=== PATIENT | male | born 1990 | race Caucasian/White ===

== ENCOUNTER 2016-09-09 14:05 | Emergency (ER) | payer SELFPAY ==
[~2016-09-09] VITALS: Ht 177.8 cm; Wt 80.2 kg
[~2016-09-09 14:05] MED LIST: FLUO-1 PO; PANT40TA3 PO; ZOFR4TAB PO
[2016-09-09 14:28] VITALS: BP 118/69; PULSE 74; RESP 20; O2SAT 99
[2016-09-09] MEDS ORDERED: CLINDAMYCIN 150 MG CAP PO ONE (15:45)
[2016-09-09] MEDS ORDERED: IBUPROFEN 400 MG TAB PO ONE (15:45)
[2016-09-09] MEDS ORDERED: SULFAMETHOXAZOLE-TRIMETHOPRIM DS 800-160 MG TAB PO ONE (15:45)
[2016-09-09] MEDS ORDERED: BACT800T5 PO (15:47)
[2016-09-09] MEDS ORDERED: NORC5TAB PO (15:47)
[2016-09-09] MEDS ORDERED: CLIN150 PO (15:47)
--- NOTE | 2016-09-09 15:48 | PD ---
HPI Chief Complaint: Skin Problem Time Seen by Provider: 15:17 Travel History International Travel<30 days: No Contact w/Intl Traveler<30days: No Traveled to known affect area: No History of Present Illness HPI The patient is a 26-year-old male who presents to the emergency department for a skin infection right forearm. Patient is a 2 day history of increasing redness and discomfort over the volar aspect of the right forearm. The patient thinks he may have a staph infection as he has a history of staph infections in the past. The patient denies any trauma to the affected area. He does note mild swelling, warmth to the affected area, and redness. However, he denies any drainage from the wound. The patient denies any associated fever , chills, or sweats. Symptoms are mild to moderate without any alleviating or exacerbating factors. PFSH Past Medical History Blood Disorders: No Anxiety: Yes Depression: Yes Cancer: No Cardiovascular Problems: Yes Diabetes: No Endocrine: No Gastrointestinal Disorders: Yes (ulcers) GERD: Yes Genitourinary: No Hypertension: Yes Immune Disorder: No Musculoskeletal: No Neurologic: No Psychiatric: No Reproductive: No Respiratory: No Tetanus Vaccination: < 5 Years Influenza Vaccination: No Past Surgical History Other Surgery: Yes (RIGHT NECK LYMPH NODE-REMOVAL R/T INFECTION) Social History Alcohol Use: Yes (occ) Tobacco Use: Yes (1ppd) Substance Use: No Allergies-Medications (Allergen,Severity, Reaction): Coded Allergies: No Known Allergies (Unverified , 09/09/16) Reported Meds & Prescriptions Reported Meds & Active Scripts Active Zofran (Ondansetron HCl) 4 Mg Tab 4 Mg PO Q6HR PRN Pantoprazole (Pantoprazole Sodium) 40 Mg Tab 40 Mg PO DAILY Prozac (Fluoxetine HCl) 10 Mg Cap 10 Mg PO DAILY Review of Systems Except as stated in HPI: all other systems reviewed are Neg General / Constitutional: No: Fever, Chills Musculoskeletal: Positive: Edema, Pain Skin: No Other (no drainage) Neurologic: No: Paresthesia, Sensory Disturbance Physical Exam Narrative GENERAL: Awake, alert, nontoxic-appearing 26-year-old male who appears his stated age and is in no acute respiratory distress. SKIN: Warm and dry. HEAD: Atraumatic. Normocephalic. EYES: No injection or drainage. ENT: No nasal bleeding or discharge. Mucous membranes pink and moist. NECK: Trachea midline. No JVD. MUSCULOSKELETAL: The right forearm has mild edema over the volar aspect, proximal one third, with mild induration, but no obvious fluctuance. No tenderness will drainage. Positive right radial pulse. Patient is able fully flex and extend the right elbow and right wrist. NEUROLOGICAL: Awake and alert. No obvious cranial nerve deficits. Motor grossly within normal limits. Normal speech. PSYCHIATRIC: Appropriate mood and affect; insight and judgment normal. Data Data Last Documented VS Vital Signs Date Time Temp Pulse Resp B/P Pulse Ox O2 Delivery O2 Flow Rate FiO2 09/09/16 14:28 74 20 118/69 99 Orders Wound Culture And Gram Stain (09/09/16 15:41) Clindamycin (Cleocin) (09/09/16 15:45) Sulfamet-Trimeth Ds 800-160 Mg (Bactrim (09/09/16 15:45) Ibuprofen (Motrin) (09/09/16 15:45) MDM Medical Decision Making Medical Screen Exam Complete: Yes Emergency Medical Condition: Yes Medical Record Reviewed: Yes Differential Diagnosis Differential diagnosis includes abscess, cellulitis, infected wound, septic arthritis, allergic reaction, insect bite. Narrative Course I do discussion with the patient regarding possible needle aspiration to evaluate if there is an abscess. The patient was agreeable and understands the risk and benefits. There is currently with alcohol and an 18-gauge needle was placed into the area of induration. There was minimal blood return, no purulent drainage. Culture was obtained. No further incision and drainage was attempted as the abscess does not appear to have solidified. The patient was administered clindamycin, Bactrim, and ibuprofen. The patient will be discharged home on pain medication and antibiotics. He is advised to elevate, warm compresses, and reevaluated in 48 hours if symptoms do not improve or worsen. Procedures Procedure Narrative The right forearm was cleaned with alcohol. An 18-gauge inch needle was placed into the area of induration with small amount of blood returned. Culture was obtained. The patient then had a dry dressing applied. The patient tolerated the procedure without difficulty and there was no obvious complications. Diagnosis Primary Impression: Cellulitis of right arm Patient Instructions: General Instructions Additional Instructions: Medications as directed. Follow-up with your primary physician. Elevate and apply heat as needed. Return in 48 hours for reevaluation if symptoms worsen or do not improve. Med/Other Pt SpecificInfo: Prescription(s) given Scripts Hydrocodone-Acetaminophen (Nash)5-325 mg Tab1 Tab PO Q6H PRN (PAIN) #15 TAB Ref 0 Prov:Jude Coburn MD 09/09/16 Clindamycin (Cleocin)150 Mg [id number] Mg PO Q6H 7 Days Ref 0 Prov:Jude Coburn MD 09/09/16 Sulfamethoxazole-Trimethoprim (Bactrim DS)800-160 Mg Tab1 Tab PO BID #14 TAB Ref 0 Prov:Jude Coburn MD 09/09/16 Disposition: 01 DISCHARGE HOME Condition: Stable Jude Coburn MD Sep 09, 2016 15:48
== END 2016-09-09 16:14 | disposition home or self-care (01) ==
LOC: PHED 14:05
DX: L03.113 Cellulitis of right upper limb (principal); B95.61 Methicillin susceptible Staphylococcus aureus infection as the cause of diseases classified elsewhere
CPT/HCPCS: 10160; 86403; 87070; 87186; 87205

== ENCOUNTER 2016-09-12 09:25 | Inpatient (IN) | payer SELFPAY ==
[~2016-09-12] VITALS: Ht 175.3 cm; Wt 80.0 kg
[~2016-09-12 09:25] MED LIST changes: +BACT800T5 PO; +CLIN150 PO; +NORC5TAB PO
[2016-09-12 09:29] VITALS: BP 136/66; PULSE 83; RESP 15; TEMP 98.1; O2SAT 99
[2016-09-12] MEDS ORDERED: PIPERACIL-TAZO 4.5 GM PREMIX 100 ML IV STA (10:56)
[2016-09-12] MEDS ORDERED: VANCOMYCIN INJ 1,000 MG in SODIUM CHLOR 0.9% 250 ML INJ 250 ML IV STA (10:56)
[2016-09-12] MEDS ORDERED: SODIUM CHLOR 0.9% 1000 ML INJ 1,000 ML IV ONE (11:00)
[2016-09-12] MEDS ORDERED: SODIUM CHLORIDE 0.9% FLUSH 5 ML FLUSH IVF PRN (11:00)
--- NOTE | 2016-09-12 11:02 | PD ---
HPI Chief Complaint: Skin Problem Time Seen by Provider: 10:45 Travel History International Travel<30 days: No Contact w/Intl Traveler<30days: No Traveled to known affect area: No History of Present Illness HPI 26-year-old male coming in with ongoing cellulitis and swelling to the right forearm. Patient was seen on September [address] Coburn, who used a needle to obtain a culture of a small abscess to the right lateral volar forearm. Wound culture came back today showing resistance to erythromycin and clindamycin. Patient was discharged home on oral Bactrim and clindamycin. Patient returns now stating increased swelling, erythema, warmth, and decreased range of motion secondary to swelling. He is not complaining of significant pain. There is no streaking in the upper arm. He denies fevers. He has no known drug allergies. Patient last ate at 0800 hrs. PFSH Past Medical History Blood Disorders: No Anxiety: Yes Depression: Yes Cancer: No Cardiovascular Problems: Yes Diabetes: No Diminished Hearing: No Endocrine: No Gastrointestinal Disorders: Yes (ulcers) GERD: Yes Genitourinary: No Hypertension: Yes Immune Disorder: No Musculoskeletal: No Neurologic: No Psychiatric: No Reproductive: No Respiratory: No Tetanus Vaccination: < 5 Years Influenza Vaccination: No Past Surgical History Other Surgery: Yes (RIGHT NECK LYMPH NODE-REMOVAL R/T INFECTION) Social History Alcohol Use: Yes (occassionally) Tobacco Use: Yes (1ppd) Substance Use: No Allergies-Medications (Allergen,Severity, Reaction): Coded Allergies: No Known Allergies (Unverified , 09/12/16) Reported Meds & Prescriptions Reported Meds & Active Scripts Active [place] (Hydrocodone-Acetaminophen) 5-325 mg Tab 1 Tab PO Q6H PRN Cleocin (Clindamycin HCl) 150 Mg Cap 150 Mg PO Q6H 7 Days Bactrim DS (Sulfamethoxazole-Trimethoprim) 800-160 Mg Tab 1 Tab PO BID Zofran (Ondansetron HCl) 4 Mg Tab 4 Mg PO Q6HR PRN Pantoprazole (Pantoprazole Sodium) 40 Mg Tab 40 Mg PO DAILY Prozac (Fluoxetine HCl) 10 Mg Cap 10 Mg PO DAILY Review of Systems Except as stated in HPI: all other systems reviewed are Neg General / Constitutional: Positive: Chills, No: Fever Eyes: No: Visual changes HENT: No: Headaches Cardiovascular: No: Chest Pain or Discomfort Respiratory: No: Shortness of Breath Gastrointestinal: No: Abdominal Pain Genitourinary: No: Dysuria Musculoskeletal: Positive: Limited ROM, No: Pain Skin: Positive Other (see history present illness.), No Rash Neurologic: No: Weakness Psychiatric: No: Depression Endocrine: No: Polydipsia Hematologic/Lymphatic: No: Easy Bruising Physical Exam Narrative GENERAL: Patient appears in no acute distress. SKIN: Warm and dry. Patient's right forearm is erythematous, warm, and indurated from the elbow down through the wrist and dorsal hand. Patient has normal sensation and circulation in the distal right upper extremity. Patient does however have somewhat limited supination and pronation of the right forearm. There is no lymphangitis proximally to the elbow. There is no obvious pointing abscess. HEAD: Atraumatic. Normocephalic. EYES: Pupils equal and round. No scleral icterus. No injection or drainage. ENT: No nasal bleeding or discharge. Mucous membranes pink and moist. Pharynx is normal. NECK: Trachea midline. No JVD. Supple nontender without significant lymphadenopathy. CARDIOVASCULAR: Regular rate and rhythm. RESPIRATORY: No accessory muscle use. Clear to auscultation. Breath sounds equal bilaterally. . MUSCULOSKELETAL: Extremities without clubbing, cyanosis, or edema. No obvious deformities. SEE SKIN NEUROLOGICAL: Awake and alert. No obvious cranial nerve deficits. Motor grossly within normal limits. Five out of 5 muscle strength in the arms and legs. Normal speech. PSYCHIATRIC: Appropriate mood and affect; insight and judgment normal. Data Data Last Documented VS Vital Signs Date Time Temp Pulse Resp B/P Pulse Ox O2 Delivery O2 Flow Rate FiO2 09/12/16 11:05 98 Room Air 09/12/16 11:05 17 09/12/16 09:29 98.1 83 136/66 Orders Complete Blood Count With Diff (09/12/16 10:56) Blood Culture (09/12/16 10:56) Sodium Chloride 0.9% Flush (Ns Flush) (09/12/16 11:00) Piperacil-Tazo 4.5 Gm Premix (Zosyn 4.5 (09/12/16 10:56) Vancomycin Inj (Vancomycin Inj) (09/12/16 10:56) Comprehensive Metabolic Panel (09/12/16 10:56) Lactic Acid Sepsis Protocol (09/12/16 10:56) Chest, Single Ap (09/12/16 10:56) Ecg Monitoring (09/12/16 10:56) Iv Access Insert/Monitor (09/12/16 10:56) Oximetry (09/12/16 10:56) Oxygen Administration (09/12/16 10:56) Sodium Chlor 0.9% 1000 Ml Inj (Ns 1000 M (09/12/16 11:00) NPO (09/12/16 10:56) Ct Forearm W Iv Contrast (09/12/16 ) Iohexol 350 Inj (Omnipaque 350 Inj) (09/12/16 11:34) Potassium Chloride (Kcl) (09/12/16 12:15) Potassium Chlor 20 Meq Premix (Kcl 20 Me (09/12/16 12:15) Azithromycin Inj (Zithromax Inj) (09/12/16 13:00) Albuterol-Ipratropium Neb (Duoneb Neb) (09/12/16 13:00) Guaifen-Cod 200-20 Mg/10ml Liq (Robituss (09/12/16 13:00) Sputum Culture And Gram Stain (09/12/16 12:51) Legionella Urinary Antigen (09/12/16 12:51) Pneumococcal Urinary Antigen (09/12/16 12:51) Resp Oxygen Jaden C Titrat 1-4 L (09/12/16 ) Resp Incentive Spirometry (09/12/16 ) Admit Order (Ed Use Only) (09/12/16 12:57) Labs Laboratory Tests Test 09/12/16 09/12/16 11:06 11:29 White Blood Count 8.2 TH/MM3 Red Blood Count 4.54 MIL/MM3 Hemoglobin 13.7 GM/DL Hematocrit 39.7 % Mean Corpuscular Volume 87.4 FL Mean Corpuscular Hemoglobin 30.2 PG Mean Corpuscular Hemoglobin 34.6 % Concent Red Cell Distribution Width 12.9 % Platelet Count 137 TH/MM3 Mean Platelet Volume 10.9 FL Neutrophils (%) (Auto) 73.0 % Lymphocytes (%) (Auto) 16.4 % Monocytes (%) (Auto) 8.2 % Eosinophils (%) (Auto) 1.8 % Basophils (%) (Auto) 0.6 % Neutrophils # (Auto) 6.0 TH/MM3 Lymphocytes # (Auto) 1.3 TH/MM3 Monocytes # (Auto) 0.7 TH/MM3 Eosinophils # (Auto) 0.1 TH/MM3 Basophils # (Auto) 0.0 TH/MM3 CBC Comment DIFF FINAL Differential Comment Sodium Level 137 MEQ/L Potassium Level 2.8 MEQ/L Chloride Level 100 MEQ/L Carbon Dioxide Level 28.0 MEQ/L Anion Gap 9 MEQ/L Blood Urea Nitrogen 5 MG/DL Creatinine 0.83 MG/DL Estimat Glomerular Filtration 110 ML/MIN Rate Random Glucose 123 MG/DL Calcium Level 8.6 MG/DL Magnesium Level 2.0 MG/DL Total Bilirubin 0.7 MG/DL Aspartate Amino Transf 14 U/L (AST/SGOT) Alanine Aminotransferase 38 U/L (ALT/SGPT) Alkaline Phosphatase 84 U/L Total Protein 6.5 GM/DL Albumin 3.1 GM/DL Lactic Acid Level 2.6 mmol/L [facility] Medical Decision Making Medical Screen Exam Complete: Yes Emergency Medical Condition: Yes Differential Diagnosis Worsening cellulitis the right forearm. Deep abscess of the right forearm suspected. Failure to outpatient therapy. Possible need for surgery. Narrative Course Patient is felt to be medically stable at time of exam. IV access is obtained and labs ordered including CBC, CMP, lactic acid, blood cultures 2. Patient is started on Zosyn for 4.25 mg IV as well as vancomycin 1000 mg IV. Chest x-ray is ordered. Patient is made nothing by mouth. CT with IV contrast of the right forearm is ordered to evaluate extent of abscess. Patient is given 1000 mL's normal saline IV. CT shows phlebitis with localized induration, as well as 10 cm long deep abscess to the right lateral forearm per radiologist. Call is placed to Dr. Cooper, and patient is discussed. He recommends calling [facility] surgery on-call for OR I&D. Call was placed to Dr. Rojas, and we attempted to reach his office from 12:15 PM, 1306 p.m., 1407 p.m., and I'm still awaiting to speak to him. 1500 [address] finally spoke with [address] Rojas, and he stated he would not feel comfortable operating on this patient as the abscess is beyond the elbow. Call was placed to Dr. Cooper who states he will perform the I&D on the patient. Diagnosis Primary Impression: Abscess of forearm, right Additional Impression: Cellulitis of right arm Admitting Information Admitting Physician Requests: Admit Condition: Stable Gilberto Franklin Sep 12, 2016 11:02
[2016-09-12 11:05] VITALS: RESP 17; O2SAT 98
[2016-09-12] MEDS ORDERED: IOHEXOL 350 MG/ML 10 ML VIAL (for RAD DIAG) IV ONE (11:34)
[2016-09-12 11:38] LABS: BASOPHIL % 0.6 % (0.0-2.0); EOSINOPHIL # 0.1 TH/MM3 (0-0.4); EOSINOPHIL % 1.8 % (0.0-4.0); HEMATOCRIT 39.7 % (39.0-51.0); HEMO FLAGS DIFF FINAL; LYMPH % 16.4 % (9.0-44.0); LYMPHOCYTE # 1.3 TH/MM3 (1.0-4.8); MEAN CELL VOLUME 87.4 FL (80.0-100.0); MEAN CORPUSCULAR HEMOGLOBIN 30.2 PG (27.0-34.0); MEAN CORPUSCULAR HGB CONC 34.6 % (32.0-36.0); MONO % 8.2 % (0.0-8.0); PLATELET COUNT 137 TH/MM3 (150-450); RED BLOOD COUNT 4.54 MIL/MM3 (4.50-5.90); RED CELL DISTRIBUTION WIDTH 12.9 % (11.6-17.2); WHITE BLOOD COUNT 8.2 TH/MM3 (4.0-11.0)
--- NOTE | 2016-09-12 11:54 | RADRPT ---
EXAM DATE/TIME: 09/12/2016 11:17 [facility] COMPARISON: No previous studies available for comparison. INDICATIONS : Evaluate for abscess on right forearm, worsening on antibiotics. Redness and swelling right forearm. IV CONTRAST: 75 cc Omnipaque 350 (iohexol) IV RADIATION DOSE: 9.39 CTDIvol (mGy) MEDICAL HISTORY : Cardiovascular disease. Hypertension. SURGICAL HISTORY : None. ENCOUNTER: Initial ACUITY: 3 days PAIN SCALE: 0/10 LOCATION: Right forearm TECHNIQUE: Volumetric scanning of the forearm was performed. Using automated exposure control and adjustment of the mA and/or kV according to patient size, radiation dose was kept as low as reasonably achievable to obtain optimal diagnostic quality images. FINDINGS: There is fairly extensive cellulitis of the forearm predominantly along the posterior medial aspect o f the forearm. There is skin thickening and subcutaneous edema. There is a superficial thrombophlebit is involving the basilic vein with 2 areas of intraluminal thrombus noted measuring up to about 2.3 c m in length distally and 1 cm in length proximally. There is a subcutaneous abscess on the surface of the forearm musculature along the ulnar aspect of the forearm which extends over a total length of a bout 10 cm and measures about 1.6 cm in transverse diameter and about up to 1 cm in thickness. No bon y destructive change identified to suggest osteomyelitis. CONCLUSION: 1. Superficial basilic vein thrombophlebitis associated with cellulitis of the forearm. There is also an elongated deep subcutaneous abscess extending over a length of about 10 cm and measuring up to ab out 1.6 x 1 cm in axial dimension. No evidence for osteomyelitis. Douglas Appiah MD on September 12, 2016 at 11:45 Board Certified Radiologist. This report was verified electronically.
[2016-09-12 11:58] LABS: ALKALINE PHOSPHATASE 84 U/L (45-117); ALT (GPT) 38 U/L (12-78); ANION GAP 9 MEQ/L (5-15); AST (GOT) 14 U/L (15-37); BLOOD UREA NITROGEN 5 MG/DL (7-18); CHLORIDE 100 MEQ/L (98-107); GLOMERULAR FILTRATION RATE 110 ML/MIN (>89); SODIUM (NA) 137 MEQ/L (136-145); TOTAL BILIRUBIN ADULT 0.7 MG/DL (0.2-1.0)
[2016-09-12] MEDS ORDERED: PROPOFOL 200 MG/20 ML AMP IV ONE (12:00)
[2016-09-12] MEDS ORDERED: ONDANSETRON HCL 4 MG/2 ML VIAL IV PUSH ONE (12:00)
--- NOTE | 2016-09-12 12:03 | RADRPT ---
EXAM DATE/TIME: 09/12/2016 11:00 [facility] COMPARISON: CT ABDOMEN & PELVIS W CONTRAST, September 03, 2016, 21:54. CHEST SINGLE AP, September 02, 2016, 18:09. INDICATIONS : Fever, right arm swelling. MEDICAL HISTORY : None. SURGICAL HISTORY : None. ENCOUNTER: Initial ACUITY: 4 - 6 days PAIN SCORE: 0/10 LOCATION: Bilateral chest FINDINGS: There is vague infiltrate in the medial right lung base. The left lung is grossly clear. Cardiomedias tinal contours are satisfactory. The osseous structures are intact CONCLUSION: Mild right middle lobe infiltrate Osmani Brumfield MD on September 12, 2016 at 12:00 Board Certified Radiologist. This report was verified electronically.
[2016-09-12 12:04] LABS: POTASSIUM 2.8 MEQ/L (3.5-5.1)
[2016-09-12] MEDS ORDERED: POTASSIUM CHLORIDE 20 MEQ CONTROLLED RELEASE TAB PO ONE (12:15)
[2016-09-12] MEDS ORDERED: POTASSIUM CHLOR 20 MEQ PREMIX 100 ML IV ONE (12:15)
[2016-09-12] MEDS ORDERED: ACETAMINOPHEN 325 MG TAB PO PRN ×2 (13:00)
[2016-09-12] MEDS ORDERED: ONDANSETRON HCL 4 MG/2 ML VIAL IVP PRN (13:00)
[2016-09-12] MEDS ORDERED: ACETAMINOPHEN/HYDROcodone 325 MG/7.5 MG TAB PO PRN (13:00)
[2016-09-12] MEDS ORDERED: MAGNESIUM HYDROXIDE SUSP 30 ML CUP PO PRN (13:00)
[2016-09-12] MEDS ORDERED: SODIUM CHLORIDE 0.9% FLUSH 5 ML FLUSH FLUSH PRN (13:00)
[2016-09-12] MEDS ORDERED: NALOXONE HCL 0.4 MG/ML AMP IV PRN (13:00)
[2016-09-12] MEDS ORDERED: guaiFENesin/CODEINE SYRUP 200 MG/20 MG/10 ML CUP PO PRN (13:00)
[2016-09-12] MEDS ORDERED: RESP: ALBUTEROL 2.5 MG/IPRATROPIUM 0.5 MG NEB (PRN) INH (13:00)
[2016-09-12] MEDS ORDERED: BISACODYL 10 MG SUPP PR PRN (13:00)
[2016-09-12] MEDS ORDERED: AZITHROMYCIN INJ 500 MG in SODIUM CHLOR 0.9% 250 ML INJ 250 ML IV SCH (13:00)
[2016-09-12] MEDS ORDERED: MORPHINE SULFATE 4 MG/ML INJ IV PRN (13:00)
[2016-09-12] MEDS ORDERED: SENNOSIDES 8.6 MG TAB PO PRN (13:00)
[2016-09-12] MEDS ORDERED: ACETAMINOPHEN/HYDROcodone 325 MG/5 MG TAB PO PRN (13:00)
[2016-09-12 13:29] LABS: LACTIC ACID GHOST NOT REPORTABLE
[2016-09-12] MEDS ORDERED: LEVOFLOXACIN 750 MG PREMIX INJ 150 ML IV SCH (14:00)
[2016-09-12] MEDS: DOCUSATE SODIUM 100 MG CAP PO SCH (14:04)
[2016-09-12] MEDS: LACTATED RINGER'S 1000 ML INJ 1,000 ML IV SCH ×2 (15:02→20:34)
[2016-09-12 15:03] VITALS: BP 118/61; PULSE 84; RESP 16; O2SAT 98
--- NOTE | 2016-09-12 15:37 | HHI.HP ---
[facility] Service [facility] Primary Care Physician No Primary Care Physician Admission Diagnosis R Forearm Abscess/Pneumonia/Hypokalemia Diagnoses: Chief Complaint: right forearm abscess Travel History International Travel<30 Days: No Contact w/Intl Traveler <30 Da: No Traveled to Known Affected Are: No History of Present Illness 26-year-old male with history of GERD, marijuana use, anxiety/depression, presents with a five-day history of right forearm swelling/warmth. Patient reports this past Friday09/07/16 he started to notice just a small bump at the volar aspect of his right forearm. The swelling worsened and therefore he presented to the ER on 09/09/16, needle aspiration of the abscess was done, and the patient was sent home on oral Bactrim and clindamycin. The wound culture was resulted with MSSA resistant to erythromycin/clindamycin. Patient reports compliance with his antibiotics, however the swelling, erythema, warmth continues to worsen. He denies fevers or chills. He has decreased range of motion of the right elbow secondary to swelling. The patient adamantly denies any IVDU. 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 He denies any other medical complaints at this time. Review of Systems Constitutional: DENIES: Fever, Chills, Dizziness Endocrine: DENIES: Polydipsia, Polyuria, Polyphagia Eyes: DENIES: Blurred vision, Vision loss, Double Vision Ears, nose, mouth, throat: DENIES: Throat pain, Ear Pain, Odynophagia Respiratory: DENIES: Cough, Shortness of breath Cardiovascular: DENIES: Chest pain, Palpitations, Syncope, Orthopnea Gastrointestinal: DENIES: Abdominal pain, Constipation, Diarrhea, Nausea, Vomiting Genitourinary: DENIES: Urinary frequency, Urgency, Dysuria Musculoskeletal: DENIES: Back pain, Neck pain Integumentary: DENIES: Pruritus, Rash Hematologic/lymphatic: DENIES: Bruising, Lymphadenopathy Immunologic/allergic: DENIES: Eczema, Urticaria Neurologic: DENIES: Abnormal gait, Headache, Localized weakness Past Family Social History Past Medical History GERD anxiety/depression recent hospitalization 09/02/16-09/05/16 for abdominal pain/N/V, possible marijuana induced hyperemesis vs somatization/anxiety Past Surgical History Right neck lymph node removed secondary to infection Complicated laceration repair to lower extremity EGD 09/03/16 Reported Medications Branford (Hydrocodone-Acetaminophen) 5-325 mg Tab 1 Tab PO Q6H PRN Cleocin (Clindamycin HCl) 150 Mg Cap 150 Mg PO Q6H 7 Days Bactrim DS (Sulfamethoxazole-Trimethoprim) 800-160 Mg Tab 1 Tab PO BID Zofran (Ondansetron HCl) 4 Mg Tab 4 Mg PO Q6HR PRN Pantoprazole (Pantoprazole Sodium) 40 Mg Tab 40 Mg PO DAILY Prozac (Fluoxetine HCl) 10 Mg Cap 10 Mg PO DAILY Allergies: Coded Allergies: No Known Allergies (Unverified , 09/12/16) Active Ordered Medications Current Medications Medications (Trade) Dose Ordered Sig/Mike Route Start Time Stop Time Status Last Admin Guaifenesin/ Codeine Phosphate 10 ml 10 ml Q4H PRN PO 09/12/16 13:00 (Levaquin 750 Mg Premix Inj) 150 ml @ 100 mls/hr Q48H IV 09/12/16 14:00 09/12/16 14:05 (NS Flush) 2 ml UNSCH PRN FLUSH 09/12/16 13:00 (NS Flush) 2 ml BID FLUSH 09/12/16 21:00 (Tylenol) 650 mg Q4H PRN PO 09/12/16 13:00 (Zofran Inj) 4 mg Q6H PRN IVP 09/12/16 13:00 (Dulcolax Supp) 10 mg DAILY PRN [place] 09/12/16 13:00 (Colace) 100 mg Q12H PO 09/12/16 13:00 09/12/16 14:04 (Milk Of Magnesia Liq) 30 ml Q12H PRN PO 09/12/16 13:00 (Senokot) 17.2 mg Q12H PRN PO 09/12/16 13:00 (Tylenol) 650 mg Q6H PRN PO 09/12/16 13:00 (Branford 5-325 Mg) 1 tab Q4H PRN PO 09/12/16 13:00 (Branford 7.5-325 Mg) 1 tab Q4H PRN PO 09/12/16 13:00 (Morphine Inj) 1 mg Q3H PRN IV 09/12/16 13:00 Naloxone HCl 0.4 mg 0.4 mg UNSCH PRN IV 09/12/16 13:00 (Lr 1000 ml Inj) 1,000 ml @ 125 mls/hr Q8H IV 09/12/16 15:00 09/12/16 15:02 Family History Mother has thyroid disease Brother with heart disease Social History Tobacco use- 1 PPD Occasional alcohol use Daily marijuana use Denies any IVDU Physical Exam Vital Signs Vital Signs Date Time Temp Pulse Resp B/P Pulse Ox O2 Delivery O2 Flow Rate FiO2 09/12/16 11:05 98 Room Air 09/12/16 11:05 17 98 Room Air 09/12/16 09:35 17 09/12/16 09:29 98.1 83 15 136/66 99 Physical Exam GENERAL: Well-nourished, well-developed young male patient in [facility]. SKIN: Warm and dry. No rash. HEAD: Normocephalic. Atraumatic. EYES: Pupils equal and round. No scleral icterus. No injection or drainage. ENT: No nasal bleeding or discharge. Mucous membranes pink and moist. NECK: Supple. Trachea midline. CARDIOVASCULAR: Regular rate and rhythm. S1, S2 noted. No murmur appreciated. RESPIRATORY: No accessory muscle use. Clear to auscultation. Breath sounds equal bilaterally. GASTROINTESTINAL: Abdomen soft, non-tender, nondistended. Normoactive bowel sounds x4. MUSCULOSKELETAL: No obvious deformities. Lower extremities without clubbing, cyanosis, or edema. Right volar forearm with diffuse erythema/warmth/edema/ induration, tender, decreased ROM of right elbow secondary to swelling but no redness or tenderness. Left forearm exam unremarkable. NEUROLOGICAL: Awake and alert. No obvious cranial nerve deficits. Motor grossly within normal limits. 5/5 muscle strength in bilateral upper and lower extremities. Normal speech. PSYCHIATRIC: Appropriate mood and affect; insight and judgment normal. Laboratory Laboratory Tests Test 09/12/16 09/12/16 11:06 11:29 White Blood Count 8.2 Red Blood Count 4.54 Hemoglobin 13.7 Hematocrit 39.7 Mean Corpuscular Volume 87.4 Mean Corpuscular Hemoglobin 30.2 Mean Corpuscular Hemoglobin 34.6 Concent Red Cell Distribution Width 12.9 Platelet Count 137 Mean Platelet Volume 10.9 Neutrophils (%) (Auto) 73.0 Lymphocytes (%) (Auto) 16.4 Monocytes (%) (Auto) 8.2 Eosinophils (%) (Auto) 1.8 Basophils (%) (Auto) 0.6 Neutrophils # (Auto) 6.0 Lymphocytes # (Auto) 1.3 Monocytes # (Auto) 0.7 Eosinophils # (Auto) 0.1 Basophils # (Auto) 0.0 CBC Comment DIFF FINAL Differential Comment Sodium Level 137 Potassium Level 2.8 Chloride Level 100 Carbon Dioxide Level 28.0 Anion Gap 9 Blood Urea Nitrogen 5 Creatinine 0.83 Estimat Glomerular Filtration 110 Rate Random Glucose 123 Calcium Level 8.6 Magnesium Level 2.0 Total Bilirubin 0.7 Aspartate Amino Transf 14 (AST/SGOT) Alanine Aminotransferase 38 (ALT/SGPT) Alkaline Phosphatase 84 Total Protein 6.5 Albumin 3.1 Lactic Acid Level 2.6 Date/Time Procedure Status Source Growth 09/12/16 11:06 Aerobic Blood Culture Received Blood Peripheral Pending 09/12/16 11:06 Anaerobic Blood Culture Received Blood Peripheral Pending Result Diagram: 09/12/16 1106 09/12/16 1106 Imaging Last Impressions Chest X-Ray 09/12/16 1056 Signed Impressions: Service Date/Time: September 11:00 - CONCLUSION: Mild right middle lobe infiltrate Osmani Brumfield MD Upper Extremity CT 09/12/16 0000 Signed Impressions: Service Date/Time: September 11:17 - CONCLUSION: 1. Superficial basilic vein thrombophlebitis associated with cellulitis of the forearm. There is also an elongated deep subcutaneous abscess extending over a length of about 10 cm and measuring up to about 1.6 x 1 cm in axial dimension. No evidence for osteomyelitis. Douglas Appiah MD Assessment and Plan Problem List: (1) Abscess of forearm, right ICD Code: L02.413 Status: Acute Assessment and Plan 26-year-old male with history of GERD, marijuana use, anxiety/depression, presents with a five-day history of right forearm swelling/warmth. Right Forearm Abscess, Failed Outpatient: Initially seen in ER on 09/09/16, needle aspiration done and patient was sent home on po Bactrim/clindamycin. Wound culture resulted with MSSA resistant to erythromycin/clindamycin. RUE CT done which showed superficial basiclic vein thrombophlebitis associated with cellulitis of forearm; also elongated deep subcutaneous abscess extending over a length of 10cm, measuring up to 1.6x1cm. Afebrile, no leukocytosis. Blood cultures collected. S/p IV Vanco and Zosyn in the ER. Continue on IV Levaquin. Consult hand surgery, Dr. Cooper plan for I&D in OR today. Keep NPO. Pain control with Branford prn and IV Morphine prn. Abnormal CXR, possible Pneumonia: chest xray showing mild RML infiltrate. Patient denies cough/sob/fever/chills. On IV Levaquin as above. Hypokalemia: K 2.8. Given IV KCl. Repeat BMP in the am. GERD: chronic, continue patient's Protonix. Anxiety/Depression: chronic, continue patient's Prozac. DVT Prophylaxis: teds/SCDs Written by Jessika Thornton, acting as scribe for Dr. Montesinos on 09/12/16 at 14:40. The documentation accurately reflects the work performed [id number] by me on at 1440 Code Status Full Code Discussed Condition With Patient, RESIDENT SERVICE COORDINATOR, ER PA Physician Certification 2 Midnight Certification Type: Admission for Inpatient Services Order for Inpatient Services The services are ordered in accordance with Medicare regulations or non- Medicare payer requirements, as applicable. In the case of services not specified as inpatient-only, they are appropriately provided as inpatient services in accordance with the 2-midnight benchmark. Estimated LOS (days): 2 days is the estimated time the patient will need to remain in the hospital, assuming treatment plan goals are met and no additional complications. Post-Hospital Plan: Home Jessika Thornton PA-C Sep 12, 2016 15:37 Nathan Montesinos MD Sep 12, 2016 16:53
[2016-09-12] MEDS ORDERED: LIDOCAINE HCL 2% 50 ML VIAL ONE (16:17)
[2016-09-12] MEDS ORDERED: BUPIVACAINE HCL PF 0.5% 30 ML VIAL ONE (16:17)
[2016-09-12] MEDS ORDERED: FAMOTIDINE 20 MG/2 ML VIAL ONE (16:32)
[2016-09-12] MEDS ORDERED: MIDAZOLAM HCL 2 MG/2 ML VIAL ONE (16:32)
[2016-09-12] MEDS ORDERED: DEXAMETHASONE SOD PHOS 4 MG/ML VIAL ONE (16:32)
[2016-09-12] MEDS ORDERED: NEOMYCIN/POLYMYXIN 1 ML G.U. IRRIGANT IR ONE (17:08)
[2016-09-12] MEDS ORDERED: MORPHINE SULFATE 4 MG/ML INJ ONE (17:40)
[2016-09-12] MEDS ORDERED: *morphine SULFATE 8 MG/ML PERIprocedure ONLY ONE ×3 (17:40→19:08)
[2016-09-12] MEDS ORDERED: fentaNYL CITRATE 250 MCG/5 ML AMP ONE (17:40)
--- NOTE | 2016-09-12 18:18 | MB ---
cc: PASTOR SOMMERS III, M.D. DATE OF CONSULTATION: 09/12/2016. REASON FOR CONSULTATION: The patient is a right hand dominant 26-year-old male who came into the emergency room. The other physicians were either unable or unwilling to take the consult so I agreed to. HISTORY OF PRESENT ILLNESS: The patient was in the hospital about a week ago for GI issues where he had endoscopy performed and he developed a small abscess on the right forearm. It was aspirated by an ER doctor on September 09 and grew out Staph aureus and he came back today with worsening redness, swelling and pain. PAST MEDICAL HISTORY: 1. Anxiety. 2. Depression. 3. GI ulcers. PAST SURGICAL HISTORY: 1. Right neck lymph node incision and drainage for an infection. SOCIAL HISTORY: He smokes one pack per day. ALLERGIES: NO KNOWN DRUG ALLERGIES. MEDICATIONS: 1. [place]. 2. Clindamycin. 3. Bactrim. 4. Zofran. 5. Pantoprazole. 6. Prozac 40 milligrams a day. REVIEW OF SYSTEMS: The patient denies any headaches, double or blurry vision. He is not complaining of any coughing, wheezing or shortness breath. He is not complaining of any chest pain or palpitations. He is not complaining of nausea, vomiting or abdominal pain. He is not complaining of any burning, frequency or urgency with urination. He is not complaining of any spine, neck or back pain. He is complaining of obvious redness and swelling in his right arm but otherwise no lesions, rashes or eruptions. He is not complaining of any anxiety, depression or suicidal ideations. He is not complaining of any polyuria, polydipsia or polyphagia. He is not complaining of any night sweats, fevers or chills. IMAGING STUDIES: X-rays were reviewed. He has a CT scan in [facility] which reveals superficial basilic vein thrombophlebitis associated with cellulitis of the right forearm. There is also an elongated deep subcutaneous abscess extending over a length of 10 cm and no evidence of osteomyelitis. Chest x-ray was reviewed and reveals mild right middle lobe infiltrate. PHYSICAL EXAMINATION: GENERAL: On physical examination he is well-developed, well-nourished and in no apparent distress. He is awake, alert and oriented x3. He is very pleasant, otherwise resting comfortably in bed. VITAL SIGNS: Temperature is 98.1, blood pressure 118/61, heart rate 84, respiratory rate 16. RIGHT UPPER EXTREMITY: Examination of the right upper extremity reveals full active range of motion. He is neurovascularly intact. All musculotendinous units are intact. He does have an obvious large fluctuant superficial abscess that is quite long extending over the ulnar side of his forearm. There is induration and fluctuance and erythema that is pronounced. No palpable epitrochlear adenopathy and no streaking proximally. IMPRESSION: Right forearm cellulitis with abscess. PLAN: The plan is to go urgently to the operating room for a simple incision and drainage and then the patient will need to be admitted to the hospital and placed on IV antibiotics as well as dressing changes. He will be cleared to go home once all the redness and swelling disappears and the wounds remain clean. I have discussed this with the patient and he understands and requests that we proceed. MD LIZ Mendoza III/TUYET /4:54 PM /6:09 PM
[2016-09-12] MEDS ORDERED: *MEPERIDINE 25 MG INJ VIAL PERIprocedural Use ONLY ONE (18:20)
[2016-09-12] MEDS ORDERED: DO NOT ADM ANY ANTICOAGULANT DRUGS XX PRN (18:30)
[2016-09-12 21:00] VITALS: BP 126/69; PULSE 75; RESP 20; TEMP 98.3; O2SAT 98
[2016-09-12] MEDS: SODIUM CHLORIDE 0.9% FLUSH 5 ML FLUSH FLUSH SCH (21:00)
--- NOTE | 2016-09-12 22:20 | MP ---
cc: PASTOR COOPER III, M.D. DATE OF SURGERY 09/12/2016 PREOPERATIVE DIAGNOSIS Right forearm cellulitis and abscess formation. PROCEDURE Incision and drainage of the abscess of the right forearm. SURGEON Ching Cooper III, MD PROCEDURE IN DETAIL The patient was brought to the operating room and placed supine on the operating table. After the correct site and side of surgery were verified by members of each team in the room multiple times including the patient and myself, after adequate preop markings and preoperative written consent were verified by everyone and after adequate preop time-out was performed to everyone's satisfaction, after adequate general anesthesia had been achieved, the right upper extremity was elevated and pressure was held on the brachial artery for 1 minute and a highly placed well-padded axillary tourniquet was inflated to 200 mmHg for a total of approximately 11 minutes. A longitudinally oriented incision over the point of maximum fluctuance was made and immediate encountered purulent fluid and this was sampled off the field. Suction was used then to probe this and suction off all of the purulence. The second counter incision was made distally. The wound was then thoroughly irrigated with saline solution and then packing and [place] drains were used proximally and distally. The hand and arm were thoroughly cleansed and dried. A bulky soft dressing was applied. The axillary tourniquet was released and all the fingers on the right became immediately soft, pink and warm and had brisk capillary refill of less than 2 seconds. He was awakened from anesthesia and transported to the Post Anesthesia Care Unit awake and in stable condition at the end of the case. Sponge, needle, instrument counts were correct at the end of the case as reported by the nurses in the room. MD LIZ Mendoza III/ /6:14 PM /10:10 PM
[2016-09-13] MEDS: DOCUSATE SODIUM 100 MG CAP PO SCH ×2 (00:19→12:07)
[2016-09-13] MEDS: MEPERIDINE HCL 50 MG/ML VIAL IM PRN ×3 (00:20→08:18)
[2016-09-13 00:23] VITALS: O2SAT 98
[2016-09-13 04:00] VITALS: BP 119/75; PULSE 74; RESP 20; TEMP 96.7; O2SAT 96
[2016-09-13 04:32] LABS: BICARBONATE 30.2 MEQ/L (21.0-32.0)
[2016-09-13] MEDS: LACTATED RINGER'S 1000 ML INJ 1,000 ML IV SCH ×3 (05:11→23:03)
[2016-09-13 08:00] VITALS: BP 121/73; PULSE 69; RESP 16; TEMP 97.8; O2SAT 96
[2016-09-13] MEDS: SODIUM CHLORIDE 0.9% FLUSH 5 ML FLUSH FLUSH SCH ×2 (08:16→20:01)
[2016-09-13] MEDS: PANTOPRAZOLE SOD 40 MG DELAYED RELEASE TAB PO SCH (08:17)
[2016-09-13] MEDS: FLUoxetine HCL 10 MG CAP PO SCH (08:17)
--- NOTE | 2016-09-13 11:26 | HHI.PR ---
Subjective Remarks Follow-up right forearm abscess. Complaining of right forearm pain relieved with current pain medicine. Discussed with RN who will provide education to the fianc regarding dressing change. Objective Vitals Vital Signs Date Time Temp Pulse Resp B/P Pulse Ox O2 Delivery O2 Flow Rate FiO2 09/13/16 08:00 97.8 69 16 121/73 96 09/13/16 04:23 18 09/13/16 04:00 96.7 74 20 119/75 96 09/13/16 00:23 98 21 09/12/16 21:00 98.3 75 20 126/69 98 09/12/16 20:36 98.7 73 16 113/66 98 Room Air 09/12/16 19:30 73 16 119/63 98 Nasal Cannula 2 09/12/16 19:00 81 16 121/59 98 Nasal Cannula 2 09/12/16 18:30 77 15 119/67 98 Nasal Cannula 2 09/12/16 18:15 82 15 129/73 97 Nasal Cannula 2 09/12/16 18:00 80 15 122/69 99 Nasal Cannula 2 09/12/16 17:45 77 15 117/74 99 Nasal Cannula 2 09/12/16 17:32 98.5 75 14 145/89 99 Nasal Cannula 2 09/12/16 15:03 84 16 118/61 98 Room Air I/O 09/12/16 09/12/16 09/12/16 09/13/16 09/13/16 09/13/16 07:00 15:00 23:00 07:00 15:00 23:00 Intake Total 1240 ml 1360 ml Output Total 25 ml Balance 1215 ml 1360 ml Intake Oral 240 ml 360 ml IV Total 500 ml 1000 ml Other 500 ml Output Urine Total 0 ml Estimated Blood Loss 25 ml # Voids 1 2 # Bowel Movements 0 0 Result Diagram: 09/12/16 1106 09/13/16 0348 Imaging Last Impressions Chest X-Ray 09/12/16 1056 Signed Impressions: Service Date/Time: September 11:00 - CONCLUSION: Mild right middle lobe infiltrate Osmani Brumfield MD Upper Extremity CT 09/12/16 0000 Signed Impressions: Service Date/Time: September 11:17 - CONCLUSION: 1. Superficial basilic vein thrombophlebitis associated with cellulitis of the forearm. There is also an elongated deep subcutaneous abscess extending over a length of about 10 cm and measuring up to about 1.6 x 1 cm in axial dimension. No evidence for osteomyelitis. Douglas Appiah MD Objective Remarks GENERAL: Well-developed, well-nourished in no distress SKIN: Warm and dry. HEAD: Atraumatic. Normocephalic. EYES: Pupils equal and round. No scleral icterus. No injection or drainage. ENT: No nasal bleeding or discharge. Mucous membranes pink and moist. NECK: Trachea midline. No JVD. CARDIOVASCULAR: Regular rate and rhythm. RESPIRATORY: No accessory muscle use. Clear to auscultation. Breath sounds equal bilaterally. GASTROINTESTINAL: Abdomen soft, non-tender, nondistended. MUSCULOSKELETAL: Extremities without clubbing, cyanosis, or edema. No obvious deformities. Right forearm with dry dressing NEUROLOGICAL: Awake and alert. No obvious cranial nerve deficits. Motor grossly within normal limits. Five out of 5 muscle strength in the arms and legs. Normal speech. PSYCHIATRIC: Appropriate mood and affect; insight and judgment normal. Procedures Right forearm abscess incision and drainage A/P Problem List: (1) Abscess of forearm, right ICD Code: L02.413 Status: Acute Assessment and Plan 26-year-old male with history of GERD, marijuana use, anxiety/depression, presents with a five-day history of right forearm swelling/warmth. Right Forearm Abscess, Failed Outpatient: Initially seen in ER on 09/09/16, needle aspiration done and patient was sent home on po Bactrim/clindamycin. Wound culture resulted with MSSA resistant to erythromycin/clindamycin. RUE CT done which showed superficial basiclic vein thrombophlebitis associated with cellulitis of forearm; also elongated deep subcutaneous abscess extending over a length of 10cm, measuring up to 1.6x1cm. Afebrile, no leukocytosis. Blood cultures collected. S/p IV Vanco and Zosyn in the ER. Continue on IV Levaquin. Consult hand surgery, Dr. Cooper status post I&D in OR. Pain control with [place] prn and IV Demerol. Patient stable Abnormal CXR, possible Pneumonia: chest xray showing mild RML infiltrate. Patient denies cough/sob/fever/chills. On IV Levaquin as above. Repeat chest x- ray in 6 weeks Hypokalemia: K 2.8. Given IV KCl. Repeat BMP showed improvement GERD: chronic, continue patient's Protonix. Anxiety/Depression: chronic, continue patient's Prozac. DVT Prophylaxis: teds/SCDs Discharge Planning Possible discharge pending clearance by hand surgery. Fiance will provide wound care. Consult case management for wound care/visiting nurse Discharge patient to home Condition on discharge: Improved Regular Diet as tolerated [place] activity no driving Rx written: [place] Follow-up with primary care physician in one week Nathan Montesinos MD Sep 13, 2016 11:26
[2016-09-13] MEDS ORDERED: LEVA750T PO (11:31)
[2016-09-13] MEDS ORDERED: HYDR-3580 PO (11:31)
--- NOTE | 2016-09-13 11:32 | HHI.DCPOC ---
Discharge Care Plan Diagnosis: (1) Abscess of forearm, right Your Health Problems Are: Difficulty with ADL Exercise Tolerance Chronic Pain Goals to Promote Your Health * To prevent worsening of your condition and complications * To maintain your health at the optimal level Directions to Meet Your Goals Take your medications as prescribed Follow your dietary instruction Follow activity as directed Keep your appointments as scheduled Take your immunizations and boosters as scheduled If your symptoms worsen call your PCP, if no PCP go to Urgent Care Center or Emergency Room Smoking is Dangerous to Your Health. Avoid second hand smoke Call the 24-hour hour crisis hotline for domestic abuse at Nathan Montesinos MD Sep 13, 2016 11:32
[2016-09-13 11:43] LABS: HEMOGLOBIN A1a 1.7 %; HEMOGLOBIN A1b 0.8 %; HEMOGLOBIN Ao 85.2 %; HEMOGLOBIN F 1.2 %; HEMOGLOBIN LA1C 1.7 %; HEMOGLOBIN P3 3.5 %
[2016-09-13 12:00] VITALS: BP 129/85; PULSE 76; RESP 18; TEMP 97.5; O2SAT 98; O2SAT 99
[2016-09-13] MEDS ORDERED: MORPHINE SULFATE 4 MG/ML INJ IV PRN (12:15)
--- NOTE | 2016-09-13 12:53 | HHI.FF ---
Face to Face Verification Diagnosis: (1) Abscess of forearm, right Home Health Nursing Order: Medical education Signs/symptoms of disease process Medication education-adverse effect Wound care and dressing changes Nursing assessment with vital signs I have seen patient Jean Paul Yao on 09/13/16. My clinical findings support the need for the requested home health care services because: Med compliance is questionable I certify that my clinical findings support that this patient is homebound because: Need for psychosocial assistance Nathan Montesinos MD Sep 13, 2016 12:53
[2016-09-13] MEDS: ACETAMINOPHEN/HYDROcodone 325 MG/7.5 MG TAB PO PRN ×2 (14:15→19:59)
[2016-09-13] MEDS: LEVOFLOXACIN 750 MG PREMIX INJ 150 ML IV SCH (14:18)
[2016-09-13] MEDS: MORPHINE SULFATE 4 MG/ML INJ IV PRN ×3 (15:31→22:40)
[2016-09-13 16:00] VITALS: BP 125/82; PULSE 76; RESP 18; TEMP 98.1; O2SAT 100
[2016-09-13 20:00] VITALS: BP 136/75; PULSE 70; RESP 20; TEMP 97.5; O2SAT 98
[2016-09-14] VITALS: BP 114/65; PULSE 72; RESP 19; TEMP 97; O2SAT 97
[2016-09-14] MEDS: ACETAMINOPHEN/HYDROcodone 325 MG/7.5 MG TAB PO PRN ×3 (00:27→12:41)
[2016-09-14] MEDS: DOCUSATE SODIUM 100 MG CAP PO SCH ×2 (00:27→12:41)
[2016-09-14] MEDS: MORPHINE SULFATE 4 MG/ML INJ IV PRN ×4 (02:18→14:39)
[2016-09-14] MEDS ORDERED: Vancomycin Consult Pharmacy 1 EA OTHER SCH (05:30)
[2016-09-14] MEDS ORDERED: VANCOMYCIN INJ 1,250 MG in SODIUM CHLOR 0.9% 250 ML INJ 250 ML IV ONE (05:30)
[2016-09-14] MEDS ORDERED: VANCOMYCIN 1,500 MG/NS 500 ML IV ONE ×2 (06:00)
[2016-09-14 08:00] VITALS: BP 127/83; PULSE 66; RESP 19; TEMP 97.7; O2SAT 97
[2016-09-14] MEDS: FLUoxetine HCL 10 MG CAP PO SCH (08:57)
[2016-09-14] MEDS: PANTOPRAZOLE SOD 40 MG DELAYED RELEASE TAB PO SCH (08:57)
[2016-09-14] MEDS: SODIUM CHLORIDE 0.9% FLUSH 5 ML FLUSH FLUSH SCH (08:59)
[2016-09-14] MEDS: LACTATED RINGER'S 1000 ML INJ 1,000 ML IV SCH ×2 (09:00→15:28)
[2016-09-14 12:00] VITALS: BP 122/71; PULSE 77; RESP 19; TEMP 97.9; O2SAT 100
[2016-09-14] MEDS: LEVOFLOXACIN 750 MG PREMIX INJ 150 ML IV SCH (12:41)
--- NOTE | 2016-09-14 14:48 | HHI.DS ---
Discharge Summary Admission Date Sep 12, 2016 at 12:58 Discharge Date: Sep 14, 2016 Admitting Diagnosis R Forearm Abscess/Pneumonia/Hypokalemia (1) Abscess of forearm, right ICD Code: L02.413 Diagnosis: Principal Procedures Right forearm abscess incision and drainage Brief History - From Admission 26-year-old male with history of GERD, marijuana use, anxiety/depression, presents with a five-day history of right forearm swelling/warmth. Patient reports this past Friday09/07/16 he started to notice just a small bump at the volar aspect of his right forearm. The swelling worsened and therefore he presented to the ER on 09/09/16, needle aspiration of the abscess was done, and the patient was sent home on oral Bactrim and clindamycin. The wound culture was resulted with MSSA resistant to erythromycin/clindamycin. Patient reports compliance with his antibiotics, however the swelling, erythema, warmth continues to worsen. He denies fevers or chills. He has decreased range of motion of the right elbow secondary to swelling. The patient adamantly denies any IVDU. 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 He denies any other medical complaints at this time. CBC/BMP: 09/12/16 1106 09/13/16 0348 Significant Findings Laboratory Tests Test 09/12/16 09/12/16 09/13/16 11:06 11:29 03:48 Platelet Count 137 TH/MM3 (150-450) Neutrophils (%) (Auto) 73.0 % (16.0-70.0) Monocytes (%) (Auto) 8.2 % (0.0-8.0) Potassium Level 2.8 MEQ/L (3.5-5.1) Blood Urea Nitrogen 5 MG/DL (7-18) 5 MG/DL (7-18) Random Glucose 123 MG/DL 116 MG/DL (74-106) (74-106) Aspartate Amino Transf 14 U/L (15-37) (AST/SGOT) Albumin 3.1 GM/DL (3.4-5.0) Lactic Acid Level 2.6 mmol/L (0.4-2.0) Imaging Last Impressions Chest X-Ray 09/12/16 1056 Signed Impressions: Service Date/Time: September 11:00 - CONCLUSION: Mild right middle lobe infiltrate Osmani Brumfield MD Upper Extremity CT 09/12/16 0000 Signed Impressions: Service Date/Time: September 11:17 - CONCLUSION: 1. Superficial basilic vein thrombophlebitis associated with cellulitis of the forearm. There is also an elongated deep subcutaneous abscess extending over a length of about 10 cm and measuring up to about 1.6 x 1 cm in axial dimension. No evidence for osteomyelitis. Douglas Appiah MD PE at Discharge GENERAL: Well-developed, well-nourished in no distress SKIN: Warm and dry. Right forearm with no erythema, improving induration, and [address] s/p I&D. HEAD: Atraumatic. Normocephalic. EYES: Pupils equal and round. No scleral icterus. No injection or drainage. ENT: No nasal bleeding or discharge. Mucous membranes pink and moist. NECK: Trachea midline. No JVD. CARDIOVASCULAR: Regular rate and rhythm. RESPIRATORY: No accessory muscle use. Clear to auscultation. Breath sounds equal bilaterally. GASTROINTESTINAL: Abdomen soft, non-tender, nondistended. MUSCULOSKELETAL: Extremities without clubbing, cyanosis, or edema. No obvious deformities. Right forearm as above. NEUROLOGICAL: Awake and alert. No obvious cranial nerve deficits. Motor grossly within normal limits. Five out of 5 muscle strength in the arms and legs. Normal speech. PSYCHIATRIC: Appropriate mood and affect; insight and judgment normal. Pt update on day of discharge The patient is doing well and wants to go home. He denies any fever or chills. He knows to follow up with hand surgery in 2-3 days. He is curious when he will be clear to go back to work. Hospital Course 26-year-old male with history of GERD, marijuana use, anxiety/depression, presents with a five-day history of right forearm swelling/warmth. Right Forearm Abscess, Failed Outpatient: Initially seen in ER on 09/09/16, needle aspiration done and patient was sent home on po Bactrim/clindamycin. Wound culture resulted with MSSA resistant to erythromycin/clindamycin. RUE CT done which showed superficial basiclic vein thrombophlebitis associated with cellulitis of forearm; also elongated deep subcutaneous abscess extending over a length of 10cm, measuring up to 1.6x1cm. Afebrile, no leukocytosis. Blood cultures collected. S/p IV Vanco and Zosyn in the ER. He received IV Levaquin, and culture with staph aureus sensitive to Levaquin, changed to by mouth at [place]. Consulted hand surgery, Dr. Cooper performed I&D in the OR 09/12. Pain control with [place] prn. Arranged [facility] to assist with dressing changes. Patient stable Abnormal CXR, possible Pneumonia: chest xray showing mild RML infiltrate. Patient denies cough/sob/fever/chills. On Levaquin as above. Repeat chest x- ray in 6 weeks Hypokalemia: K 2.8. Given IV KCl. Repeat BMP showed improvement, K+ 4.0. Resolved. GERD: chronic, continue patient's Protonix. Anxiety/Depression: chronic, continue patient's Prozac. Pt Condition on Discharge: Good Discharge Disposition: Disch w/ Home Health Serv Discharge Time: <= 30 minutes Discharge Instructions DIET: Follow Instructions for: As Tolerated, No Restrictions Activities you can perform: Regular-No Restrictions Follow up Referrals: Hand Surgery - 2-3 Days @ [facility] with Delvis Cooper III, MD PCP Follow-up - 1 Week SNF/[facility]/ with [facility] at Home New Orders: X-RAY CHEST PA & LAT - 6 Weeks New Medications: Levofloxacin (Levaquin) 750 Mg Tab 750 MG PO DAILY stop date 09/22/16 Infection #8 Ref 0 TAB Hydrocodone-Acetaminophen (Hydrocodone-Acetaminophen) 7.5-325 mg Tab 1 TAB PO Q6H PRN PAIN SCALE 1 TO 8 #28 TAB Continued Medications: Fluoxetine (Prozac) 10 Mg Cap 10 MG PO DAILY Anxiety #30 CAP Ondansetron (Zofran) 4 Mg Tab 4 MG PO Q6HR PRN NAUSEA OR VOMITING #10 Ref 0 TAB Pantoprazole (Pantoprazole) 40 Mg Tab 40 MG PO DAILY Reflux #30 TAB Discontinued Medications: Clindamycin (Cleocin) 150 Mg Cap 150 MG PO Q6H Infection Days 7 Ref 0 CAP Hydrocodone-Acetaminophen ([place]) 5-325 mg Tab 1 TAB PO Q6H PRN PAIN #15 Ref 0 TAB Sulfamethoxazole-Trimethoprim (Bactrim DS) 800-160 Mg Tab 1 TAB PO BID Infection #14 Ref 0 TAB Additional Information Written by Trino Bernabe, acting as scribe for Dr. Montesinos on 09/14/16 at 14:51. The documentation accurately reflects the work performed [id number] by me on at 1451 Trino Bernabe Sep 14, 2016 14:48 Nathan Montesinos MD Sep 14, 2016 15:36
[2016-09-14 16:00] VITALS: BP 132/77; PULSE 73; RESP 18; TEMP 98.2; O2SAT 97
[2016-09-14] MEDS ORDERED: VANCOMYCIN 1,500 MG/NS 500 ML IV SCH ×2 (18:00)
[2016-09-15] MEDS ORDERED: PHARMACY ORDERED LAB XX ONE (17:45)
== END 2016-09-14 17:55 | disposition home health service (06) | DRG 603 ==
LOC: NEPC 09:25 → NEDA 12:58 → N07A 20:50
PROVIDERS: ADMIT Internal Medicine; ATTEND Internal Medicine
PROC: 0H9DX0Z Drainage of Right Lower Arm Skin with Drainage Device, External Approach (ICD-10-PCS; principal; 2016-09-12 16:43)
DX: L02.413 Cutaneous abscess of right upper limb (principal); I80.8 Phlebitis and thrombophlebitis of other sites; I10 Essential (primary) hypertension; K21.9 Gastro-esophageal reflux disease without esophagitis; E87.6 Hypokalemia; L03.113 Cellulitis of right upper limb; B95.61 Methicillin susceptible Staphylococcus aureus infection as the cause of diseases classified elsewhere; F12.90 Cannabis use, unspecified, uncomplicated; F17.210 Nicotine dependence, cigarettes, uncomplicated; F32.9 Major depressive disorder, single episode, unspecified; F41.9 Anxiety disorder, unspecified; Z16.24 Resistance to multiple antibiotics; Z86.14 Personal history of Methicillin resistant Staphylococcus aureus infection
CPT/HCPCS: 71010; 73201; 80048; 80053; 83036; 83605; 83735; 85025; 86403; 87015; 87040; 87070; 87102; 87106; 87116; 87186; 87205; 87206; 94150; 96365; 96367; 96368; J1100; J1956; J2175; J2250; J2270; J2405; J2543; J3010; J3370; J3480; J7030; J7040; J7050; J7120; Q9967

== ENCOUNTER 2016-12-05 18:12 | Emergency (ER) | payer MEDICAID, OTHER ==
[~2016-12-05] VITALS: Ht 177.8 cm; Wt 78.3 kg
[~2016-12-05 18:12] MED LIST changes: -BACT800T5 PO; -CLIN150 PO; -NORC5TAB PO; -PANT40TA3 PO; -ZOFR4TAB PO
[2016-12-05 18:21] VITALS: BP 128/71; PULSE 78; RESP 16; TEMP 100; O2SAT 99
[2016-12-05] MEDS ORDERED: FLUO-1 PO (18:37)
--- NOTE | 2016-12-05 19:09 | PD ---
HPI Chief Complaint: Skin Problem Time Seen by Provider: 19:06 Travel History International Travel<30 days: No Contact w/Intl Traveler<30days: No Traveled to known affect area: No History of Present Illness HPI 26-year-old right hand dominant male presents to the ED for evaluation of 3 day history of redness, swelling, pain of the left arm. Gradual onset. Patient denies acute injury or skin break. He endorses history of chronic abscesses and skin problems. He denies history of MRSA, fever, chills, shortness of breath, chest pain, abdominal pain, nausea, vomiting, numbness, tingling or weakness, limitations to range of motion of the extremity. Denies chronic health problems, takes no daily medications. NKDA. No treatment attempted at home. PFSH Past Medical History Blood Disorders: No Anxiety: No Depression: No Cancer: No Cardiovascular Problems: Yes Diabetes: No Diminished Hearing: No Endocrine: No Gastrointestinal Disorders: Yes (ulcers) GERD: Yes Genitourinary: No Hypertension: Yes Immune Disorder: No Implanted Vascular Access Dvce: No Musculoskeletal: No Neurologic: No Psychiatric: No Reproductive: No Respiratory: No Influenza Vaccination: No Past Surgical History Other Surgery: Yes (RIGHT NECK LYMPH NODE-REMOVAL R/T INFECTION) Social History Alcohol Use: Yes (occassionally) Tobacco Use: Yes (1ppd) Substance Use: No Allergies-Medications (Allergen,Severity, Reaction): Coded Allergies: No Known Allergies (Unverified , 12/05/16) Reported Meds & Prescriptions Reported Meds & Active Scripts Active Keflex (Cephalexin) 250 Mg Cap 250 Mg PO Q6H 10 Days Bactrim DS (Sulfamethoxazole-Trimethoprim) 800-160 Mg Tab 1 Tab PO BID Reported Prozac (Fluoxetine HCl) 10 Mg Cap 10 Mg PO BID Review of Systems Except as stated in HPI: all other systems reviewed are Neg Physical Exam Narrative GENERAL: Well-nourished, well-developed white male in no acute distress. SKIN: There is an indurated area in the left posterior forearm which measures about 4 cm in diameter. It is fluctuant but there is no pointing or drainage. There is a zone of inflammation extending to the wrist but no lymphangitis. HEAD: Normocephalic. EYES: No scleral icterus. No injection or drainage. NECK: Supple, trachea midline. No JVD or lymphadenopathy. CARDIOVASCULAR: Regular rate and rhythm without murmurs, gallops, or rubs. RESPIRATORY: Breath sounds equal bilaterally. No accessory muscle use. GASTROINTESTINAL: Abdomen soft, non-tender, nondistended. MUSCULOSKELETAL: No cyanosis, or edema. Focused left upper extremity exam: 2+ radial pulse. Patient retains full, active, painless range of motion of the elbow, wrists, fingers. Sensation intact to light touch distally. Cap refill less than 2 seconds. BACK: Nontender without obvious deformity. No CVA tenderness. Data Data Last Documented VS Vital Signs Date Time Temp Pulse Resp B/P Pulse Ox O2 Delivery O2 Flow Rate FiO2 12/05/16 18:21 100.0 78 16 128/71 99 Orders Abscess Culture And Gram Stain (12/05/16 19:12) Lidocai-Epi 1%-1:100,000 Inj (Xylocaine- (12/05/16 19:15) Sulfamet-Trimeth Ds 800-160 Mg (Bactrim (12/05/16 19:15) Cephalexin (Keflex) (12/05/16 19:15) MDM Medical Decision Making Medical Screen Exam Complete: Yes Emergency Medical Condition: Yes Differential Diagnosis Abscess versus sebaceous cyst versus cellulitis versus other Narrative Course 26-year-old right hand dominant male presents to the ED for evaluation of 3 day history of redness, swelling, pain of the left arm. Gradual onset. Patient denies acute injury or skin break. He endorses history of chronic abscesses and skin problems. He denies history of MRSA, fever, chills, shortness of breath, chest pain, abdominal pain, nausea, vomiting, numbness, tingling or weakness, limitations to range of motion of the extremity. Vitals reviewed. Physical exam reveals a nontoxic-appearing white male in no acute distress. There is an indurated area in the left posterior forearm which measures about 4 cm in diameter. It is fluctuant but there is no pointing or drainage. There is a zone of inflammation extending to the wrist but no lymphangitis. 2+ radial pulse. Patient retains full, active, painless range of motion of the elbow, wrists, fingers. Sensation intact to light touch distally. Cap refill less than 2 seconds. Abscess I&D was performed. Please my procedure note for details. Patient was prescribed Bactrim and Keflex. First dose administered in the ED. He is instructed to keep the wound clean, dry, covered, return to the ED in 48 hours for packing removal and wound recheck. He indicated understanding of the instructions and is amenable to plan of care. He is stable and discharged home. Procedures Procedure Narrative INCISION AND DRAINAGE OF ABSCESS: The area was prepped and was sterilely draped. A subcutaneous wheal of 1 % Xylocaine with epinephrine with a total number 6 mL was used to anesthetize the area properly. A number 11 scalpel was used to make a 1-cm incision across the area of the abscess. The abscess was drained, complex loculations were broken down, and irrigated with normal saline. Cultures were obtained. Quarter inch iodoform packing was placed in the wound. Sterile dressing applied. Patient advised to have packing removed in two days. Diagnosis Primary Impression: Abscess of left forearm Referrals: Primary Care Physician Patient Instructions: Abscess Incision and Drainage (ED), General Instructions Additional Instructions: [id number] pain medications (Tylenol, Ibuprofen) as directed on label, as needed for pain and fever. Take all antibiotics as they are prescribed, even if your symptoms resolve. Keep the wound clean, dry and covered. Return to the ED in 48 hours for packing removal and wound recheck. Follow-up with primary care provider this week. Return to the ED for any urgent or emergent medical condition. Med/Other Pt SpecificInfo: Prescription(s) given Scripts Cephalexin (Keflex)250 Mg [id number] Mg PO Q6H 10 Days Ref 0 Prov:Denny Ivy MD 12/05/16 Sulfamethoxazole-Trimethoprim (Bactrim DS)800-160 Mg Tab1 Tab PO BID #14 TAB Ref 0 Prov:Denny Ivy MD 12/05/16 Disposition: 01 DISCHARGE HOME Condition: Stable Kellie Mishra Dec 05, 2016 19:09
[2016-12-05] MEDS ORDERED: LIDOCAINE 1%/EPINEPHrine 1:100,000 SOLN 20 ML VIAL INFIL ONE (19:15)
[2016-12-05] MEDS ORDERED: BACT800T5 PO (19:15)
[2016-12-05] MEDS ORDERED: CEPH-459 PO (19:15)
[2016-12-05] MEDS ORDERED: CEPHALEXIN MONOHYDRATE 250 MG CAP PO ONE (19:15)
[2016-12-05] MEDS ORDERED: SULFAMETHOXAZOLE-TRIMETHOPRIM DS 800-160 MG TAB PO ONE (19:15)
== END 2016-12-05 20:09 | disposition home or self-care (01) ==
LOC: PHEFT 18:12
DX: L02.414 Cutaneous abscess of left upper limb (principal)
CPT/HCPCS: 10061; 87070; 87205

== ENCOUNTER 2016-12-08 17:36 | Emergency (ER) | payer MEDICAID, OTHER ==
[~2016-12-08] VITALS: Ht 177.8 cm; Wt 77.1 kg
[~2016-12-08 17:36] MED LIST changes: +BACT800T5 PO; +CEPH-459 PO
[2016-12-08 17:40] VITALS: BP 117/72; PULSE 80; RESP 18; TEMP 99.1; O2SAT 95
--- NOTE | 2016-12-08 18:03 | PD ---
HPI . left arm abscess Chief Complaint: Wound/Suture/Staple Re-Check Time Seen by Provider: 18:03 Travel History International Travel<30 days: No Contact w/Intl Traveler<30days: No Traveled to known affect area: No History of Present Illness HPI 26-year-old male who was previously seen here on December 05 with a left forearm abscess here for wound check. Patient is here to have the packing removed and have the area reassess. He tells me that the erythema is spreading to his wrist distally. He is also still complaining of pain at the abscess and incision site. His been taking his antibiotics and tells me that his arm is improved, but still feels that it may be worsening as he noticed the redness is extending. He denies any fever or chills. He has no other complaints. PFSH Past Medical History Blood Disorders: No Anxiety: No Depression: No Cancer: No Cardiovascular Problems: Yes Diabetes: No Diminished Hearing: No Endocrine: No Gastrointestinal Disorders: Yes (ulcers) GERD: Yes Genitourinary: No Hypertension: Yes Immune Disorder: No Implanted Vascular Access Dvce: No Musculoskeletal: No Neurologic: No Psychiatric: No Reproductive: No Respiratory: No Past Surgical History Other Surgery: Yes (RIGHT NECK LYMPH NODE-REMOVAL R/T INFECTION) Social History Alcohol Use: Yes (occassionally) Tobacco Use: Yes (1ppd) Substance Use: No Allergies-Medications (Allergen,Severity, Reaction): Coded Allergies: No Known Allergies (Unverified , 12/08/16) Reported Meds & Prescriptions Reported Meds & Active Scripts Active Clindamycin (Clindamycin HCl) 300 Mg Cap 300 Mg PO Q6H Keflex (Cephalexin) 250 Mg Cap 250 Mg PO Q6H 10 Days Bactrim DS (Sulfamethoxazole-Trimethoprim) 800-160 Mg Tab 1 Tab PO BID Reported Prozac (Fluoxetine HCl) 10 Mg Cap 10 Mg PO BID Review of Systems General / Constitutional: No: Fever Eyes: No: Visual changes HENT: No: Headaches Cardiovascular: No: Chest Pain or Discomfort Respiratory: No: Shortness of Breath Gastrointestinal: No: Abdominal Pain Genitourinary: No: Dysuria Musculoskeletal: No: Pain Skin: Positive Other (left forearm abscess), No Rash Neurologic: No: Weakness Psychiatric: No: Depression Endocrine: No: Polydipsia Hematologic/Lymphatic: No: Easy Bruising Physical Exam Narrative GENERAL: AAO x 3, no acute distress, Well-nourished, well-developed patient. SKIN: Warm and dry. No visible rashes or bruising. left forearm with abscess measuring approximately 5 cm, surrounding erythema is 9cm x 6 cm and the area was outlined. He does have some erythema extending to distal wrist. HEAD: Normocephalic and atraumatic. EYES: No scleral icterus. No injection or drainage. ENT: No nasal drainage noted. Mucous membranes pink. Airway patent. NECK: Supple, trachea midline. No JVD. CARDIOVASCULAR: Regular rate and rhythm without murmurs, gallops, or rubs. RESPIRATORY: Breath sounds equal bilaterally. No accessory muscle use. No rhonchi or rales. GASTROINTESTINAL: Abdomen soft, non-tender, nondistended. EXTREMITIES: No cyanosis or edema. BACK: Nontender without obvious deformity. No CVA tenderness. PSYCH: AAO x 3, normal affect. Data Data Last Documented VS Vital Signs Date Time Temp Pulse Resp B/P Pulse Ox O2 Delivery O2 Flow Rate FiO2 12/08/16 17:40 99.1 80 18 117/72 95 Orders Basic Metabolic Panel (Bmp) (12/08/16 18:17) Complete Blood Count With Diff (12/08/16 18:17) Iv Access Insert/Monitor (12/08/16 18:17) Clindamycin Inj (Cleocin Inj) (12/08/16 18:30) Lidocaine 1% Inj (50 Ml) (Xylocaine 1% I (12/08/16 18:30) Wound Care (12/08/16 19:50) Labs Laboratory Tests Test 12/08/16 18:30 White Blood Count 5.3 TH/MM3 Red Blood Count 4.71 MIL/MM3 Hemoglobin 14.1 GM/DL Hematocrit 41.7 % Mean Corpuscular Volume 88.5 FL Mean Corpuscular Hemoglobin 30.0 PG Mean Corpuscular Hemoglobin 33.8 % Concent Red Cell Distribution Width 12.3 % Platelet Count 163 TH/MM3 Mean Platelet Volume 9.6 FL Neutrophils (%) (Auto) 54.3 % Lymphocytes (%) (Auto) 26.5 % Monocytes (%) (Auto) 12.3 % Eosinophils (%) (Auto) 5.4 % Basophils (%) (Auto) 1.5 % Neutrophils # (Auto) 2.8 TH/MM3 Lymphocytes # (Auto) 1.4 TH/MM3 Monocytes # (Auto) 0.7 TH/MM3 Eosinophils # (Auto) 0.3 TH/MM3 Basophils # (Auto) 0.1 TH/MM3 CBC Comment DIFF FINAL Differential Comment Sodium Level 137 MEQ/L Potassium Level 3.5 MEQ/L Chloride Level 99 MEQ/L Carbon Dioxide Level 27.4 MEQ/L Anion Gap 11 MEQ/L Blood Urea Nitrogen 9 MG/DL Creatinine 0.89 MG/DL Estimat Glomerular Filtration 102 ML/MIN Rate Random Glucose 90 MG/DL Calcium Level 8.9 MG/DL [facility] Medical Decision Making Medical Screen Exam Complete: Yes Emergency Medical Condition: Yes Medical Record Reviewed: Yes Differential Diagnosis left forearm abscess, left forearm cellulitis, less likely left forearm fracture Narrative Course 26-year-old male who was previously seen here on December 05 with a left forearm abscess here for wound check. Patient is here to have the packing removed and have the area reassess. He tells me that the erythema is spreading to his wrist distally. He is also still complaining of pain at the abscess and incision site. His been taking his antibiotics and tells me that his arm is improved, but still feels that it may be worsening as he noticed the redness is extending. He denies any fever or chills. He has no other complaints. Patient seen and examined. He does appear to have a pretty decent sized abscess to his left forearm. Upon removal of the packing, there is a significant amount of purulent matter still coming out. The area is very tender to touch and there is erythema extending to the distal wrist. I discussed with Dr. Cho as I feel patient may benefit from admission for IV abx (although wound culture with normal skin jim). Together we decided on labs and if elevated WBC, then admission. WBC normal. Area was cleaned, slightly reopened, irrigated, and repacked. Patient had a pain with the procedure despite local anesthesia. Laboratory Tests Test 12/08/16 18:30 White Blood Count 5.3 TH/MM3 Red Blood Count 4.71 MIL/MM3 Hemoglobin 14.1 GM/DL Hematocrit 41.7 % Mean Corpuscular Volume 88.5 FL Mean Corpuscular Hemoglobin 30.0 PG Mean Corpuscular Hemoglobin 33.8 % Concent Red Cell Distribution Width 12.3 % Platelet Count 163 TH/MM3 Mean Platelet Volume 9.6 FL Neutrophils (%) (Auto) 54.3 % Lymphocytes (%) (Auto) 26.5 % Monocytes (%) (Auto) 12.3 % Eosinophils (%) (Auto) 5.4 % Basophils (%) (Auto) 1.5 % Neutrophils # (Auto) 2.8 TH/MM3 Lymphocytes # (Auto) 1.4 TH/MM3 Monocytes # (Auto) 0.7 TH/MM3 Eosinophils # (Auto) 0.3 TH/MM3 Basophils # (Auto) 0.1 TH/MM3 CBC Comment DIFF FINAL Differential Comment Sodium Level 137 MEQ/L Potassium Level 3.5 MEQ/L Chloride Level 99 MEQ/L Carbon Dioxide Level 27.4 MEQ/L Anion Gap 11 MEQ/L Blood Urea Nitrogen 9 MG/DL Creatinine 0.89 MG/DL Estimat Glomerular Filtration 102 ML/MIN Rate Random Glucose 90 MG/DL Calcium Level 8.9 MG/DL He was advised to return for wound check in 48 hours. I have transitioned him off of Bactrim and onto clindamycin, however if he is unable to afford this medication he will continue to take Keflex and Bactrim. We discussed [employer]rx. for coupons. Patient verbalized instructions. I advised him to look out for signs of worsening infection and return to the ED if any of these appear. Patient verbalized understanding of instructions, questions were answered, and thanked me for their care. I advised them if their condition worsens, please return to the nearest emergency room for further care. Procedures Procedure Narrative After the risks and benefits were discussed the following procedure was performed: INCISION AND DRAINAGE OF ABSCESS: The area was prepped and was sterilely draped. A subcutaneous wheal of 1 % Xylocaine with a total number 7 mL was used to anesthetize the area. The area was properly anesthetized as much as patient could tolerate. A number 11 scalpel was used to make an additional 0.5- cm incision across the prior incision site of the abscess. The abscess was drained an irrigated with normal saline. Quarter inch iodoform packing was placed in the wound. Sterile dressing applied. Patient advised to have packing removed in two days. Diagnosis Primary Impression: Abscess of left forearm Patient Instructions: General Instructions Additional Instructions: Rest, hydrate. Do not change the dressing unless it becomes wet or soiled until wound recheck in 48 hours. You may bathe normally. Do not submerge the wound. Take the antibiotics as they are prescribed, even if your symptoms resolve during the course of treatment. Utilize [id number] pain medications, as described on the label, as needed. Return to the ED in 48 hours for packing removal and wound recheck. Follow-up with your primary care provider in next week. Return to the ED for any urgent or emergent medical condition. As we discussed, if you can afford the clindamycin, stop the bactrim and keflex. If you are unable to afford. Continue both keflex and Bactrim. [place] for worsening signs of infection which include increased redness, increased warmth, purulent drainage, increased swelling or streaking. If any signs of worsening infection, please return to the emergency department. Med/Other Pt SpecificInfo: Prescription(s) given Scripts Clindamycin 300 Mg [id number] Mg PO Q6H #28 CAP Ref 0 Prov:Marylu Cho MD 12/08/16 Disposition: 01 DISCHARGE HOME Condition: Stable Suzi Rios Dec 08, 2016 18:03
[2016-12-08] MEDS ORDERED: CLINDAMYCIN INJ 600 MG in SODIUM CHLORIDE 0.9% INJ 100 ML IV ONE (18:30)
[2016-12-08] MEDS ORDERED: LIDOCAINE HCL 1% 50 ML VIAL INFIL ONE (18:30)
[2016-12-08 18:41] LABS: AUTOMATED NEUTROPHIL # 2.8 TH/MM3 (1.8-7.7); BASOPHIL # 0.1 TH/MM3 (0-0.2); BASOPHIL % 1.5 % (0.0-2.0); EOSINOPHIL # 0.3 TH/MM3 (0-0.4); EOSINOPHIL % 5.4 % (0.0-4.0); HEMATOCRIT 41.7 % (39.0-51.0); HEMO FLAGS DIFF FINAL; LYMPH % 26.5 % (9.0-44.0); LYMPHOCYTE # 1.4 TH/MM3 (1.0-4.8); MEAN CELL VOLUME 88.5 FL (80.0-100.0); MEAN CORPUSCULAR HGB CONC 33.8 % (32.0-36.0); MONO % 12.3 % (0.0-8.0); NEUT % 54.3 % (16.0-70.0); PLATELET COUNT 163 TH/MM3 (150-450); RED BLOOD COUNT 4.71 MIL/MM3 (4.50-5.90); RED CELL DISTRIBUTION WIDTH 12.3 % (11.6-17.2); WHITE BLOOD COUNT 5.3 TH/MM3 (4.0-11.0)
[2016-12-08 18:50] LABS: POTASSIUM 3.5 MEQ/L (3.5-5.1)
[2016-12-08 18:54] LABS: BICARBONATE 27.4 MEQ/L (21.0-32.0)
[2016-12-08] MEDS ORDERED: CLIN1CAP6 PO (19:51)
== END 2016-12-08 20:12 | disposition home or self-care (01) ==
LOC: PHED 17:36 → PHEFT 20:12
DX: L02.414 Cutaneous abscess of left upper limb (principal); L53.9 Erythematous condition, unspecified; I10 Essential (primary) hypertension; F17.200 Nicotine dependence, unspecified, uncomplicated; Z86.79 Personal history of other diseases of the circulatory system; Z87.19 Personal history of other diseases of the digestive system
CPT/HCPCS: 10061; 80048; 85025; 96365

== ENCOUNTER 2017-01-23 22:26 | Observation (INO) | payer MEDICAID ==
[~2017-01-23] VITALS: Ht 177.8 cm; Wt 68.0 kg
[~2017-01-23 22:26] MED LIST changes: +CLIN1CAP6 PO
[2017-01-23 22:38] VITALS: BP 154/92; PULSE 82; RESP 17; TEMP 98.6; O2SAT 100
[2017-01-23] MEDS ORDERED: SODIUM CHLOR 0.9% 1000 ML INJ 1,000 ML IV SCH (22:39)
[2017-01-23] MEDS ORDERED: MORPHINE SULFATE 4 MG/ML INJ IV PUSH ONE (22:45)
[2017-01-23] MEDS ORDERED: PANTOPRAZOLE SODIUM 40 MG VIAL IVP ONE (22:45)
[2017-01-23] MEDS ORDERED: LIDOCAINE VISCOUS 2% SOLN 15 ML UDC PO ONE (22:45)
[2017-01-23] MEDS ORDERED: ALUMINUM/MAGNESIUM/SIMETH 30 ML CUP PO ONE (22:45)
[2017-01-23] MEDS ORDERED: METOCLOPRAMIDE HCL 10 MG/2 ML VIAL IV PUSH ONE (22:45)
[2017-01-23] MEDS ORDERED: SODIUM CHLORIDE 0.9% FLUSH 10 ML FLUSH IV FLUSH PRN (22:45)
--- NOTE | 2017-01-23 22:47 | PD ---
HPI Chief Complaint: Abdominal Pain Time Seen by Provider: 22:35 Travel History International Travel<30 days: No Contact w/Intl Traveler<30days: No Traveled to known affect area: No History of Present Illness HPI 26-year-old male with history of heroin abuse, GERD who presents for evaluation of, pain, nausea and vomiting. He reports that he relapsed on heroin 6 days ago. For the past 4-5 days he's been having epigastric abdominal pain, nausea, vomiting. He reports over the past 3 days he has had some hematemesis with bright red blood. He describes the pain in his abdomen is sharp, constant, no relieving factors. He reports decreased urine output and decreased bowel movements. Denies chest pain or shortness of breath, flank pain, fevers. Per chart review the patient had an endoscopy on September 03, 2016. Findings were normal esophagus, nasogastric tube trauma evident in the gastric body, normal duodenal mucosa involvement second portion of duodenum, normal views under retroflexion. The patient denies any NSAID use. No other complaints. PFSH Past Medical History Blood Disorders: No Anxiety: No Depression: No Cancer: No Cardiovascular Problems: Yes Diabetes: No Diminished Hearing: No Endocrine: No Gastrointestinal Disorders: Yes (ulcers) GERD: Yes Genitourinary: No Hypertension: Yes Immune Disorder: No Implanted Vascular Access Dvce: No Musculoskeletal: No Neurologic: No Psychiatric: No Reproductive: No Respiratory: No Past Surgical History Other Surgery: Yes (RIGHT NECK LYMPH NODE-REMOVAL R/T INFECTION) Social History Alcohol Use: Yes (occassionally) Tobacco Use: Yes (1ppd) Substance Use: No Allergies-Medications (Allergen,Severity, Reaction): Coded Allergies: No Known Allergies (Unverified , 12/08/16) Reported Meds & Prescriptions Reported Meds & Active Scripts Active Clindamycin (Clindamycin HCl) 300 Mg Cap 300 Mg PO Q6H Keflex (Cephalexin) 250 Mg Cap 250 Mg PO Q6H 10 Days Bactrim DS (Sulfamethoxazole-Trimethoprim) 800-160 Mg Tab 1 Tab PO BID Reported Prozac (Fluoxetine HCl) 10 Mg Cap 10 Mg PO BID Review of Systems Except as stated in HPI: all other systems reviewed are Neg Physical Exam Narrative GENERAL: Well-developed well-nourished male who is actively vomiting on examination. SKIN: Warm and dry. HEAD: Atraumatic. Normocephalic. EYES: Pupils equal and round. No scleral icterus. No injection or drainage. ENT: No nasal bleeding or discharge. Mucous membranes pink and moist. NECK: Trachea midline. No JVD. CARDIOVASCULAR: Regular rate and rhythm. No murmur appreciated. RESPIRATORY: No accessory muscle use. Clear to auscultation. Breath sounds equal bilaterally. GASTROINTESTINAL: Abdomen soft, generalized tenderness to palpation without guarding. MUSCULOSKELETAL: No obvious deformities. No edema. NEUROLOGICAL: Awake and alert. No obvious cranial nerve deficits. Motor grossly within normal limits. Normal speech. PSYCHIATRIC: Appropriate mood and affect; insight and judgment normal. Data Data Last Documented VS Vital Signs Date Time Temp Pulse Resp B/P Pulse Ox O2 Delivery O2 Flow Rate FiO2 01/23/17 22:58 15 100 Room Air 01/23/17 22:38 98.6 82 154/92 Orders Complete Blood Count With Diff (01/23/17 22:34) Comprehensive Metabolic Panel (01/23/17 22:34) Lipase (01/23/17 22:34) Urinalysis - C+S If Indicated (01/23/17 22:34) Iv Access Insert/Monitor (01/23/17 22:34) Ecg Monitoring (01/23/17 22:34) Oximetry (01/23/17 22:34) Sodium Chloride 0.9% Flush (Ns Flush) (01/23/17 22:45) Morphine Inj (Morphine Inj) (01/23/17 22:45) Pantoprazole Inj (Protonix Inj) (01/23/17 22:45) Sodium Chlor 0.9% 1000 Ml Inj (Ns 1000 M (01/23/17 22:39) Al-Mag Hy-Si 40-40-4 Mg/Ml Liq (Mag-Al P (01/23/17 22:45) Lidocaine 2% Viscous (Xylocaine 2% Visco (01/23/17 22:45) Act Partial Throm Time (Ptt) (01/23/17 22:39) Prothrombin Time / Inr (Pt) (01/23/17 22:39) Metoclopramide Inj (Reglan Inj) (01/23/17 22:45) Type And Screen (01/23/17 22:44) Ct Abd/Pel W/O Iv Contrast (01/24/17 ) Sodium Chlor 0.9% 1000 Ml Inj (Ns 1000 M (01/24/17 00:15) Admit Order (Ed Use Only) (01/24/17 ) Labs Laboratory Tests Test 01/23/17 23:15 White Blood Count 13.1 TH/MM3 Red Blood Count 5.92 MIL/MM3 Hemoglobin 16.9 GM/DL Hematocrit 50.4 % Mean Corpuscular Volume 85.1 FL Mean Corpuscular Hemoglobin 28.5 PG Mean Corpuscular Hemoglobin 33.5 % Concent Red Cell Distribution Width 13.7 % Platelet Count 188 TH/MM3 Mean Platelet Volume 9.9 FL Neutrophils (%) (Auto) 76.7 % Lymphocytes (%) (Auto) 13.3 % Monocytes (%) (Auto) 9.4 % Eosinophils (%) (Auto) 0.1 % Basophils (%) (Auto) 0.5 % Neutrophils # (Auto) 10.0 TH/MM3 Lymphocytes # (Auto) 1.7 TH/MM3 Monocytes # (Auto) 1.2 TH/MM3 Eosinophils # (Auto) 0.0 TH/MM3 Basophils # (Auto) 0.1 TH/MM3 CBC Comment DIFF FINAL Differential Comment Prothrombin Time 13.9 SEC Prothromb Time International 1.2 RATIO Ratio Activated Partial 30.7 SEC Thromboplast Time Sodium Level 131 MEQ/L Potassium Level 3.9 MEQ/L Chloride Level 90 MEQ/L Carbon Dioxide Level 28.9 MEQ/L Anion Gap 12 MEQ/L Blood Urea Nitrogen 36 MG/DL Creatinine 2.77 MG/DL Estimat Glomerular Filtration 27 ML/MIN Rate Random Glucose 115 MG/DL Calcium Level 9.9 MG/DL Total Bilirubin 2.2 MG/DL Aspartate Amino Transf 24 U/L (AST/SGOT) Alanine Aminotransferase 49 U/L (ALT/SGPT) Alkaline Phosphatase 107 U/L Total Protein 8.9 GM/DL Albumin 4.5 GM/DL Lipase 84 U/L Blood Type O POSITIVE Antibody Screen NEGATIVE MDM Medical Decision Making Medical Screen Exam Complete: Yes Emergency Medical Condition: Yes Medical Record Reviewed: Yes Differential Diagnosis Opiate withdrawal, gastritis, Alma-Donnelly tear, boorehaves syndrome, peptic ulcer disease, perforated ulcer, pancreatitis, marijuana hyperemesis syndrome Narrative Course 26-year-old male with recent heroin use presents with 4-5 days abdominal pain, nausea and vomiting with some hematemesis over the past 3 days. On examination he is actively vomiting, is generalized tenderness to palpation of the abdomen without guarding. The emesis is not blood tinged at all. Per chart review he has had this issue in the past and was felt to be possibly secondary to some medication versus marijuana hyperemesis syndrome. Plan is for basic lab work, CT of the abdomen and pelvis. We will provide him Protonix, morphine, Reglan, IV fluids. he received 4 mg of Zofran via EMS. 2300: At the end of my shift this patient was signed out to the provider pending lab work and imaging studies. Joseph Rojas January 23, 2017 22:47
[2017-01-23 22:58] VITALS: RESP 15; O2SAT 100
[2017-01-23 23:30] LABS: BASOPHIL # 0.1 TH/MM3 (0-0.2); BASOPHIL % 0.5 % (0.0-2.0); EOSINOPHIL % 0.1 % (0.0-4.0); HEMATOCRIT 50.4 % (39.0-51.0); HEMO FLAGS DIFF FINAL; LYMPH % 13.3 % (9.0-44.0); LYMPHOCYTE # 1.7 TH/MM3 (1.0-4.8); MEAN CELL VOLUME 85.1 FL (80.0-100.0); MEAN CORPUSCULAR HEMOGLOBIN 28.5 PG (27.0-34.0); MEAN CORPUSCULAR HGB CONC 33.5 % (32.0-36.0); MONO % 9.4 % (0.0-8.0); NEUT % 76.7 % (16.0-70.0); PLATELET COUNT 188 TH/MM3 (150-450); RED BLOOD COUNT 5.92 MIL/MM3 (4.50-5.90); RED CELL DISTRIBUTION WIDTH 13.7 % (11.6-17.2); WHITE BLOOD COUNT 13.1 TH/MM3 (4.0-11.0)
[2017-01-23 23:40] LABS: APTT (PATIENT) 30.7 SEC (24.3-30.1); INTERNATIONAL NORMALIZED RATIO 1.2 RATIO; PROTHROMBIN TIME - PATIENT 13.9 SEC (9.8-11.6)
[2017-01-23 23:57] LABS: ALT (GPT) 49 U/L (12-78); ANION GAP 12 MEQ/L (5-15); AST (GOT) 24 U/L (15-37); BICARBONATE 28.9 MEQ/L (21.0-32.0); BLOOD UREA NITROGEN 36 MG/DL (7-18); CHLORIDE 90 MEQ/L (98-107); GLOMERULAR FILTRATION RATE 27 ML/MIN (>89); POTASSIUM 3.9 MEQ/L (3.5-5.1); SODIUM (NA) 131 MEQ/L (136-145)
[2017-01-23 23:59] LABS: ALKALINE PHOSPHATASE 107 U/L (45-117); TOTAL BILIRUBIN ADULT 2.2 MG/DL (0.2-1.0)
[2017-01-24] VITALS (7 sets, daily range): BP systolic 114–143; BP diastolic 61–81; PULSE 57–77; RESP 12–22; TEMP 98–98.6; O2SAT 96–99
[2017-01-24] MEDS ORDERED: SODIUM CHLOR 0.9% 1000 ML INJ 1,000 ML IV ONE (00:15)
--- NOTE | 2017-01-24 01:28 | RADRPT ---
EXAM DATE/TIME: 01/24/2017 00:58 [facility] COMPARISON: CT ABDOMEN & PELVIS W CONTRAST, September 03, 2016, 21:54. INDICATIONS : Abdominal pain. ORAL CONTRAST: No oral contrast ingested. RADIATION DOSE: 4.85 CTDIvol (mGy) MEDICAL HISTORY : Hypertension. Gastroesophageal reflux disease. SURGICAL HISTORY : None. ENCOUNTER: Initial ACUITY: 1 day PAIN SCALE: 5/10 LOCATION: abdomen TECHNIQUE: Volumetric scanning of the abdomen and pelvis was performed. Using automated exposure control and ad justment of the mA and/or kV according to patient size, radiation dose was kept as low as reasonably achievable to obtain optimal diagnostic quality images. FINDINGS: LOWER LUNGS: The visualized lower lungs are clear. LIVER: Enlarged to 21 cm. Homogeneous density without lesion. There is no dilation of the biliary tree. No calcified gallstones. SPLEEN: Normal size without lesion. PANCREAS: Within normal limits. KIDNEYS: Normal in size and shape. There is no mass, stone, or hydronephrosis. ADRENAL GLANDS: Within normal limits. VASCULAR: There is no aortic aneurysm. BOWEL/MESENTERY: The stomach, small bowel, and colon demonstrate no acute abnormality. There is no free intraperitone al air or fluid. ABDOMINAL WALL: Within normal limits. RETROPERITONEUM: There is no lymphadenopathy. BLADDER: No wall thickening or mass. REPRODUCTIVE: Within normal limits. INGUINAL: There is no lymphadenopathy or hernia. MUSCULOSKELETAL: Within normal limits for patient age. CONCLUSION: 1. No acute findings. Liver enlarged to approximately 21 cm in length. There is no significant change from August 2016. Douglas Appiah MD on January 24, 2017 at 1:21 Board Certified Radiologist. This report was verified electronically.
--- NOTE | 2017-01-24 02:22 | PD ---
Data Data Last Documented VS Vital Signs Date Time Temp Pulse Resp B/P Pulse Ox O2 Delivery O2 Flow Rate FiO2 01/23/17 22:58 15 100 Room Air 01/23/17 22:38 98.6 82 154/92 Orders Complete Blood Count With Diff (01/23/17 22:34) Comprehensive Metabolic Panel (01/23/17 22:34) Lipase (01/23/17 22:34) Urinalysis - C+S If Indicated (01/23/17 22:34) Iv Access Insert/Monitor (01/23/17 22:34) Ecg Monitoring (01/23/17 22:34) Oximetry (01/23/17 22:34) Sodium Chloride 0.9% Flush (Ns Flush) (01/23/17 22:45) Morphine Inj (Morphine Inj) (01/23/17 22:45) Pantoprazole Inj (Protonix Inj) (01/23/17 22:45) Sodium Chlor 0.9% 1000 Ml Inj (Ns 1000 M (01/23/17 22:39) Al-Mag Hy-Si 40-40-4 Mg/Ml Liq (Mag-Al P (01/23/17 22:45) Lidocaine 2% Viscous (Xylocaine 2% Visco (01/23/17 22:45) Act Partial Throm Time (Ptt) (01/23/17 22:39) Prothrombin Time / Inr (Pt) (01/23/17 22:39) Metoclopramide Inj (Reglan Inj) (01/23/17 22:45) Type And Screen (01/23/17 22:44) Ct Abd/Pel W/O Iv Contrast (01/24/17 ) Sodium Chlor 0.9% 1000 Ml Inj (Ns 1000 M (01/24/17 00:15) Admit Order (Ed Use Only) (01/24/17 ) Labs Laboratory Tests Test 01/23/17 23:15 White Blood Count 13.1 TH/MM3 Red Blood Count 5.92 MIL/MM3 Hemoglobin 16.9 GM/DL Hematocrit 50.4 % Mean Corpuscular Volume 85.1 FL Mean Corpuscular Hemoglobin 28.5 PG Mean Corpuscular Hemoglobin 33.5 % Concent Red Cell Distribution Width 13.7 % Platelet Count 188 TH/MM3 Mean Platelet Volume 9.9 FL Neutrophils (%) (Auto) 76.7 % Lymphocytes (%) (Auto) 13.3 % Monocytes (%) (Auto) 9.4 % Eosinophils (%) (Auto) 0.1 % Basophils (%) (Auto) 0.5 % Neutrophils # (Auto) 10.0 TH/MM3 Lymphocytes # (Auto) 1.7 TH/MM3 Monocytes # (Auto) 1.2 TH/MM3 Eosinophils # (Auto) 0.0 TH/MM3 Basophils # (Auto) 0.1 TH/MM3 CBC Comment DIFF FINAL Differential Comment Prothrombin Time 13.9 SEC Prothromb Time International 1.2 RATIO Ratio Activated Partial 30.7 SEC Thromboplast Time Sodium Level 131 MEQ/L Potassium Level 3.9 MEQ/L Chloride Level 90 MEQ/L Carbon Dioxide Level 28.9 MEQ/L Anion Gap 12 MEQ/L Blood Urea Nitrogen 36 MG/DL Creatinine 2.77 MG/DL Estimat Glomerular Filtration 27 ML/MIN Rate Random Glucose 115 MG/DL Calcium Level 9.9 MG/DL Total Bilirubin 2.2 MG/DL Aspartate Amino Transf 24 U/L (AST/SGOT) Alanine Aminotransferase 49 U/L (ALT/SGPT) Alkaline Phosphatase 107 U/L Total Protein 8.9 GM/DL Albumin 4.5 GM/DL Lipase 84 U/L Blood Type O POSITIVE Antibody Screen NEGATIVE MDM Supervised Visit with MELISSA: Yes Narrative Course Patient care assumed from Joseph Rojas at 2300. This 18-year-old male who presents with abdominal pain in the setting apparently in use. Symptoms are consistent with a mild withdrawal. He states he has not been taking much fluid. His abdomen is benign, initial workup does show an acute kidney injury with a creatinine of 2.7 baseline appears to be 0.9. Patient was given 3 L normal saline in the emergency department, may reassess he is sleeping soundly in no apparent distress. Initial CAT scan is negative. Patient was discussed with Dr. Osborn for observation status and she is agreeable. Diagnosis Primary Impression: OFELIA (acute kidney injury) Admitting Information Admitting Physician Requests: Observation Condition: Stable Jason Baca MD January 24, 2017 02:22
[2017-01-24] MEDS ORDERED: NALOXONE HCL 0.4 MG/ML AMP IV PRN (02:45)
[2017-01-24] MEDS: SODIUM CHLOR 0.9% 1000 ML INJ 1,000 ML IV SCH ×3 (03:26→23:38)
[2017-01-24 04:04] LABS: BLOOD, URINE NEG (NEG); COMMENT (UR) CULT NOT INDICATED; CULTURE IF INDICATED CULT NOT INDICATED; GLUCOSE,URINE NEG (NEG); HYALINE CAST, URINE 104 /lpf (RARE); KETONE, URINE NEG (NEG); MUCUS URINE FEW /lpf (OCC); NITRITE,URINE NEG (NEG); PH, URINE 5.5 (5.0-8.5); SQUAMOUS EPITHELIAL CELL URINE 4 /hpf (0-5); URINE COLOR YELLOW (YELLW/STRAW); WAXY CAST, URINE 4 /lpf
[2017-01-24] MEDS ORDERED: METOCLOPRAMIDE HCL 10 MG/2 ML VIAL IV PUSH ONE (05:00)
[2017-01-24] MEDS ORDERED: ONDANSETRON HCL 4 MG/2 ML VIAL IV PUSH PRN (08:45)
[2017-01-24] MEDS: SODIUM CHLORIDE 0.9% FLUSH 10 ML FLUSH IV FLUSH SCH ×2 (08:49→19:42)
[2017-01-24] MEDS ORDERED: METOCLOPRAMIDE HCL 10 MG/2 ML VIAL IM PRN (09:30)
--- NOTE | 2017-01-24 10:31 | HHI.HP ---
[facility] No Primary Care Physician Admission Diagnosis OFELIA Diagnoses: Chief Complaint: nausea, vomiting, abdominal pain Travel History International Travel<30 Days: No Contact w/Intl Traveler <30 Da: No Traveled to Known Affected Are: No History of Present Illness 26 y/o male with a history of htn (on no medication), gerd, depression and anxiety. Patient was seen and in extreme pain, 10/10, constant cramping throughout abdomen with radiation to bilateral flanks, associated chills, nausea and vomiting. No BM since Friday, and has been unable to urinate very much. States Reglan helps but it is not enough. Patient denies regular marijuana use or NSAID use. States on Friday night he took oxycodone 40mg IV, and on then he ate chicken pasta on Friday and began vomiting on Friday. He continued to have yellow vomiting episodes multiple times a day. He states he has not been able to keep any liquids or food down. On Friday he began to have blood in his vomit, and was weak yesterday and passed out on his bathroom floor until his girlfriend woke him up. Denies hitting his head. He states the pain is intolerable and he feels like he is dying. Denies any chest pain, or sob. Complains of chills, and no BM since Friday. States he smokes marijuana 3x a week. Review of Systems Constitutional: COMPLAINS OF: Chills, DENIES: Fever Respiratory: DENIES: Cough, Sputum production, Shortness of breath Cardiovascular: DENIES: Chest pain, Lower Extremity Edema Gastrointestinal: COMPLAINS OF: Abdominal pain, Constipation, Nausea, Vomiting , DENIES: Diarrhea Genitourinary: DENIES: Hematuria, Dysuria Musculoskeletal: DENIES: Back pain, Neck pain Integumentary: DENIES: Rash Hematologic/lymphatic: DENIES: Lymphadenopathy Immunologic/allergic: DENIES: Urticaria Neurologic: DENIES: Headache Past Family Social History Past Medical History HTN (on no medication) Gerd Depression Anxiety Past Surgical History Denies any surgical history Reported Medications Reported Meds & Active Scripts Active Clindamycin (Clindamycin HCl) 300 Mg Cap 300 Mg PO Q6H Keflex (Cephalexin) 250 Mg Cap 250 Mg PO Q6H 10 Days Bactrim DS (Sulfamethoxazole-Trimethoprim) 800-160 Mg Tab 1 Tab PO BID Reported Prozac (Fluoxetine HCl) 10 Mg Cap 10 Mg PO BID Allergies: Coded Allergies: No Known Allergies (Unverified , 12/08/16) Active Ordered Medications Current Medications Medications (Trade) Dose Ordered Sig/Mike Route Start Time Stop Time Status Last Admin (NS 1000 ml Inj) 1,000 ml @ 100 mls/hr Q10H IV 01/24/17 02:32 01/24/17 03:26 (NS Flush) 2 ml UNSCH PRN IV FLUSH 01/24/17 02:45 (NS Flush) 2 ml BID IV FLUSH 01/24/17 09:00 01/24/17 08:49 (Narcan Inj) 0.4 mg UNSCH PRN IV 01/24/17 02:45 (Zofran Inj) 4 mg Q6HR PRN IV PUSH 01/24/17 08:45 01/24/17 08:49 (Reglan Inj) 5 mg Q8H PRN IM 01/24/17 09:30 01/24/17 09:44 Family History Mom: hypothyroid, heart disease, CABG Dad: ETOH abuse Social History Tobacco use: 1 1/2 PPD since age 15 Alcohol use: Denies Illicit drug use: Heroin years ago, marijuana 3x a week Physical Exam Vital Signs Vital Signs Date Time Temp Pulse Resp B/P Pulse Ox O2 Delivery O2 Flow Rate FiO2 01/24/17 08:00 98.6 63 18 123/76 97 01/24/17 06:22 72 01/24/17 04:14 98.1 77 22 127/81 96 01/24/17 03:47 64 12 114/61 96 Room Air 01/23/17 22:58 15 100 Room Air 01/23/17 22:54 15 01/23/17 22:38 98.6 82 17 154/92 100 Physical Exam GENERAL: This is a well-nourished, well-developed patient, in severe pain, crying SKIN: No rashes, ecchymoses or lesions. Cool and dry. HEAD: Atraumatic. Normocephalic. No temporal or scalp tenderness. EYES: Pupils equal round and reactive. Extraocular motions intact. No scleral icterus. ENT: Nose without bleeding, purulent drainage or septal hematoma. Airway patent. NECK: Trachea midline. No JVD or lymphadenopathy. CARDIOVASCULAR: Regular rate and rhythm without murmurs, gallops, or rubs. RESPIRATORY: Clear to auscultation. Breath sounds equal bilaterally. No wheezes , rales, or rhonchi. GASTROINTESTINAL: Abdomen soft, epigastric, RLQ and LLQ tenderness, nondistended. No hepato-splenomegaly, or palpable masses. No guarding. MUSCULOSKELETAL: Extremities without clubbing, cyanosis, or edema. No joint tenderness, effusion, or edema noted. No calf tenderness. NEUROLOGICAL: Awake and alert.t. Motor and sensory grossly within normal limits. Normal speech. Laboratory Laboratory Tests Test 01/23/17 01/24/17 23:15 03:35 White Blood Count 13.1 Red Blood Count 5.92 Hemoglobin 16.9 Hematocrit 50.4 Mean Corpuscular Volume 85.1 Mean Corpuscular Hemoglobin 28.5 Mean Corpuscular Hemoglobin 33.5 Concent Red Cell Distribution Width 13.7 Platelet Count 188 Mean Platelet Volume 9.9 Neutrophils (%) (Auto) 76.7 Lymphocytes (%) (Auto) 13.3 Monocytes (%) (Auto) 9.4 Eosinophils (%) (Auto) 0.1 Basophils (%) (Auto) 0.5 Neutrophils # (Auto) 10.0 Lymphocytes # (Auto) 1.7 Monocytes # (Auto) 1.2 Eosinophils # (Auto) 0.0 Basophils # (Auto) 0.1 CBC Comment DIFF FINAL Differential Comment Prothrombin Time 13.9 Prothromb Time International 1.2 Ratio Activated Partial 30.7 Thromboplast Time Sodium Level 131 Potassium Level 3.9 Chloride Level 90 Carbon Dioxide Level 28.9 Anion Gap 12 Blood Urea Nitrogen 36 Creatinine 2.77 Estimat Glomerular Filtration 27 Rate Random Glucose 115 Calcium Level 9.9 Total Bilirubin 2.2 Aspartate Amino Transf 24 (AST/SGOT) Alanine Aminotransferase 49 (ALT/SGPT) Alkaline Phosphatase 107 Total Protein 8.9 Albumin 4.5 Lipase 84 Blood Type O POSITIVE Antibody Screen NEGATIVE Urine Color YELLOW Urine Turbidity HAZY Urine pH 5.5 Urine Specific [place] 1.026 Urine Protein 30 Urine Glucose (UA) NEG Urine Ketones NEG Urine Occult Blood NEG Urine Nitrite NEG Urine Bilirubin NEG Urine Urobilinogen LESS THAN 2.0 Urine Leukocyte Esterase NEG Urine RBC LESS THAN 1 Urine WBC 2 Urine Squamous Epithelial 4 Cells Urine Amorphous Sediment RARE Urine Hyaline Casts 104 Urine Waxy Casts 4 Urine Mucus FEW Microscopic Urinalysis Comment CULT NOT INDICATED Result Diagram: 01/23/17 2315 01/23/17 2315 Imaging Last Impressions Abdomen/Pelvis CT 01/24/17 0000 Signed Impressions: Service Date/Time: Tuesday, January 24, 2017 00:58 - CONCLUSION: 1. No acute findings. Liver enlarged to approximately 21 cm in length. There is no significant change from August 2016. Douglas Appiah MD Assessment and Plan Problem List: (1) Hyperemesis ICD Code: R11.10 Status: Acute (2) OFELIA (acute kidney injury) ICD Code: N17.9 Status: Resolved (3) Tobacco abuse ICD Code: Z72.0 Status: Acute (4) Marijuana abuse ICD Code: F12.10 Status: Acute Assessment and Plan 26 y/o male with a history of htn (on no medication), gerd, depression and anxiety. Patient was seen and in extreme pain, 10/10, cramping throughout abdomen. Patient denies regular marijuana use or NSAID use. Hyperemesis, patient vomiting multiple times a day since friday, with associated abdominal pain ABD CT shows enlarged liver,no change in prior scan, no acute findings -Antiemetics as needed -Dilaudid .2mg Q4HR PRN -IVF for hydration -GI consult for recommendations, US gallbladder ordered -Urine drug screen ordered Acute kidney injury, creatine 2.77, baseline .8, likely dehydration from fluid loss, creatine improved to .98 -Cont IVF hydration -Trend BMP Leucocytosis, acute, likely reactive from vomiting, WBC 13.1, no fevers -CBC pending, cont to trend Elevated total bilirubin, 2.2, benign -Biliary components ordered obstruction vs [place] disease, Indirect bilirubin 1.7, direct .3 Tobacco and marijuana abuse, chronic -Encouraged to quit, patient counseled DVT prophylaxis: SCDs Discussed with Dr. Núñez Code Status FULL Discussed Condition With Patient, Dr. Núñez and RN The exam, history, and the medical decision-making described in the above note were completed with the assistance of the mid-level provider. I reviewed and agree with the findings presented. I attest that I had a [id number] encounter with the patient on the same day, and personally performed and documented my assessment and findings in the medical record.patient seen and examined on date of service. Patient reports IV injection of 40 mg oxycodoneon 01/17, followed by nausea and vomiting on Friday. No bowel movement since before using oxycodone. Acute kidney injury improved with fluids. Likely secondary to nausea or vomiting. Continue supportive care. Najma Vazquez January 24, 2017 10:31 Celestino Núñez MD January 25, 2017 12:16
[2017-01-24] MEDS: HYDROmorphone HCL PF 1 MG/ML VIAL IV PUSH PRN ×4 (11:02→23:38)
--- NOTE | 2017-01-24 11:05 | PD.CONS ---
HPI History of Present Illness This is a 26 year old with a history of GERD who presented to the ER for further evaluation of nausea, vomiting, abdominal pain. He has a history of heroin abuse and reports that he had one relapse "where I took pain meds one times- 4 Vicodin " on . He was in his normal state of health up until Friday when he started having nausea/vomiting/abdominal pain. He went out to eat Friday night and had Chicken Lj. He woke up around 8am and felt fine. By 10:30, he started having nausea and vomiting and then by 11am, he began having nausea and vomiting with bilious material. He states when he first came into the ER, he had an episode of hematemesis with bright red blood ( large amount, not streaks). This has since been bilious material and the nurse reports that she has not seen any hematemesis. He does have GERD and states he constantly has heartburn/reflux, despite taking Prevacid once a day. The abdominal pain in his epigastric area that radiates to his left and right upper quadrant. This also seems to go around to his back. The pain is constant. The only thing that seems to help is the medications for nausea and pain medicine he is receiving here in the hospital. He has not had a bowel movement since Friday, but denies any problems with constipation or diarrhea and denies any melena or hematochezia. He was evaluated by our service for hematemesis in August of 2016 and underwent evaluation with EGD (09/03/16)----> normal esophagus, nasogastric tube trauma evident gastric body, normal duodenal mucosa in bulb and 2nd portion of duodenum, normal views under retroflexion. He denies the use of NSAIDs. PFSH Past Medical History HTN GERD Depression/Anxiety PSA Fatty liver disease Past Surgical History Right lymph node removed secondary to infection Complicated laceration repair left lower extremity EGD Coded Allergies: No Known Allergies (Unverified , 12/08/16) Medications Allergies Coded Allergies Type Severity Reaction Last Updated Verified No Known Allergies 12/08/16 No Active Scripts Medications Dose Route/Sig Days Date Category Clindamycin (Clindamycin HCl) 300 Mg Cap 300 Mg PO Q6H 12/08/16 Rx Keflex (Cephalexin) 250 Mg Cap 250 Mg PO Q6H 10 3/30/17 Rx Bactrim DS (Sulfamethoxazole-Trimethoprim) 800-160 Mg Tab 1 Tab PO BID 12/05/16 Rx Prozac (Fluoxetine HCl) 10 Mg Cap 10 Mg PO BID 12/05/16 Reported Family History Mother has thyroid disease Brother has heart disease Social History Smokes 1 PPD No ETOH use PSA. Past heroin use, recently took Vicodin. Review of Systems Constitutional: COMPLAINS OF: Diaphoretic episodes, Fatigue, Chills, Change in appetite, DENIES: Fever Respiratory: DENIES: Cough Cardiovascular: DENIES: Chest pain Gastrointestinal: COMPLAINS OF: Abdominal pain, Nausea, Vomiting, Heartburn, Hematemesis, DENIES: Black stools, Bloody stools, Constipation, Diarrhea Musculoskeletal: DENIES: Joint pain Integumentary: DENIES: Abnormal pigmentation Hematologic/lymphatic: DENIES: Bruising Neurologic: DENIES: Headache Psychiatric: DENIES: Confusion GI Exam Vitals I&O Vital Signs Date Time Temp Pulse Resp B/P Pulse Ox O2 Delivery O2 Flow Rate FiO2 01/24/17 08:00 98.6 63 18 123/76 97 01/24/17 06:22 72 01/24/17 04:14 98.1 77 22 127/81 96 01/24/17 03:47 64 12 114/61 96 Room Air 01/23/17 22:58 15 100 Room Air 01/23/17 22:54 15 01/23/17 22:38 98.6 82 17 154/92 100 Imaging Last Impressions Abdomen/Pelvis CT 01/24/17 0000 Signed Impressions: Service Date/Time: Tuesday, January 24, 2017 00:58 - CONCLUSION: 1. No acute findings. Liver enlarged to approximately 21 cm in length. There is no significant change from August 2016. Douglas Appiah MD Laboratory Test 01/23/17 01/24/17 23:15 03:35 White Blood Count 13.1 TH/MM3 Red Blood Count 5.92 MIL/MM3 Hemoglobin 16.9 GM/DL Hematocrit 50.4 % Mean Corpuscular Volume 85.1 FL Mean Corpuscular Hemoglobin 28.5 PG Mean Corpuscular Hemoglobin 33.5 % Concent Red Cell Distribution Width 13.7 % Platelet Count 188 TH/MM3 Mean Platelet Volume 9.9 FL Neutrophils (%) (Auto) 76.7 % Lymphocytes (%) (Auto) 13.3 % Monocytes (%) (Auto) 9.4 % Eosinophils (%) (Auto) 0.1 % Basophils (%) (Auto) 0.5 % Neutrophils # (Auto) 10.0 TH/MM3 Lymphocytes # (Auto) 1.7 TH/MM3 Monocytes # (Auto) 1.2 TH/MM3 Eosinophils # (Auto) 0.0 TH/MM3 Basophils # (Auto) 0.1 TH/MM3 CBC Comment DIFF FINAL Differential Comment Prothrombin Time 13.9 SEC Prothromb Time International 1.2 RATIO Ratio Activated Partial 30.7 SEC Thromboplast Time Sodium Level 131 MEQ/L Potassium Level 3.9 MEQ/L Chloride Level 90 MEQ/L Carbon Dioxide Level 28.9 MEQ/L Anion Gap 12 MEQ/L Blood Urea Nitrogen 36 MG/DL Creatinine 2.77 MG/DL Estimat Glomerular Filtration 27 ML/MIN Rate Random Glucose 115 MG/DL Calcium Level 9.9 MG/DL Total Bilirubin 2.2 MG/DL Aspartate Amino Transf 24 U/L (AST/SGOT) Alanine Aminotransferase 49 U/L (ALT/SGPT) Alkaline Phosphatase 107 U/L Total Protein 8.9 GM/DL Albumin 4.5 GM/DL Lipase 84 U/L Blood Type O POSITIVE Antibody Screen NEGATIVE Urine Color YELLOW Urine Turbidity HAZY Urine pH 5.5 Urine Specific [place] 1.026 Urine Protein 30 mg/dL Urine Glucose (UA) NEG mg/dL Urine Ketones NEG mg/dL Urine Occult Blood NEG Urine Nitrite NEG Urine Bilirubin NEG Urine Urobilinogen LESS THAN 2.0 MG/DL Urine Leukocyte Esterase NEG Urine RBC LESS THAN 1 /hpf Urine WBC 2 /hpf Urine Squamous Epithelial 4 /hpf Cells Urine Amorphous Sediment RARE Urine Hyaline Casts 104 /lpf Urine Waxy Casts 4 /lpf Urine Mucus FEW /lpf Microscopic Urinalysis Comment CULT NOT INDICATED Physical Examination HEENT: Normocephalic; atraumatic; no jaundice. CHEST: CTA CARDIAC: RRR ABDOMEN: Soft, nondistended, moderate to severe RUQ tenderness; no hepatosplenomegaly; bowel sounds are present in all four quadrants. EXTREMITIES: No clubbing, cyanosis, or edema. SKIN: Normal; no rash; no jaundice. PRINT LINE INSPECTOR: No focal deficits; alert and oriented times three. Assessment and Plan Plan ASSESSMENT: - Abdominal pain, n/v. Started having epigastric pain (sharp) radiating to LUQ/ RUQ Friday with intractable nausea/vomiting, inability to tolerate po. States he vomited large amount red blood in ER. Nursing staff report that he has not had any hematemesis and what is in the emesis basin is bilious and clear emesis. Abdomen/Pelvis CT (01/24/17)----> 1. No acute findings. Liver enlarged to approximately 21 cm in length. There is no significant change from August 2016. Very mild leukocytosis, isolated mildly elevated T. Bili. Will fractionate this. Get RUQ US. HH stable. PPI. - GERD. States daily symptoms. PPI - Reported hematemesis. Nurse has not seen. EGD (09/03/16)----> normal esophagus, nasogastric tube trauma evident gastric body, normal duodenal mucosa in bulb and 2nd portion of duodenum, normal views under retroflexion. He denies the use of NSAIDs. PLAN: - NPO - RUQ US - Fractionate bilirubin - PPI - IVF - Zofran prn - Supportitve care - Further recommendations - Pt seen and examined by Dr. Brewer and myself and this note is written on his behalf Toxicology screen came back positive for benzo/opiods/cannabinoids, ? could be contributing factor Katie Eli January 24, 2017 11:05
[2017-01-24 12:32] LABS: AUTOMATED NEUTROPHIL # 5.5 TH/MM3 (1.8-7.7); BASOPHIL % 0.4 % (0.0-2.0); EOSINOPHIL % 0.5 % (0.0-4.0); HEMATOCRIT 40.5 % (39.0-51.0); HEMO FLAGS DIFF FINAL; LYMPH % 19.2 % (9.0-44.0); LYMPHOCYTE # 1.5 TH/MM3 (1.0-4.8); MEAN CORPUSCULAR HEMOGLOBIN 29.5 PG (27.0-34.0); MEAN CORPUSCULAR HGB CONC 34.7 % (32.0-36.0); MONO % 10.6 % (0.0-8.0); NEUT % 69.3 % (16.0-70.0); PLATELET COUNT 148 TH/MM3 (150-450); RED BLOOD COUNT 4.76 MIL/MM3 (4.50-5.90); RED CELL DISTRIBUTION WIDTH 13.3 % (11.6-17.2)
[2017-01-24 13:16] LABS: AMPHETAMINE, URINE NEG (NEG); BARBITURATES, URINE NEG (NEG); COCAINE, URINE NEG (NEG)
[2017-01-24 13:18] LABS: BICARBONATE 31.3 MEQ/L (21.0-32.0); POTASSIUM 4.4 MEQ/L (3.5-5.1)
[2017-01-24 14:02] LABS: INDIRECT BILIRUBIN 1.7 MG/DL (0.0-0.8)
--- NOTE | 2017-01-24 15:50 | RADRPT ---
EXAM DATE/TIME: 01/24/2017 15:25 [facility] COMPARISON: CT ABDOMEN & PELVIS W/O CONTRAST, January 24, 2017, 0:58. ULTRASOUND SOFT TISSUE, November 14, 2013, 21:53. INDICATIONS : Nausea/vomiting. MEDICAL HISTORY : HTN. Ulcer. Abdominal pain. GERD. Hematemesis. Substance use. SURGICAL HISTORY : Right leg. Right neck lymph node removal. ENCOUNTER: Initial ACUITY: 1 day PAIN SCORE: 4/10 LOCATION: Right upper quadrant MEASUREMENTS: LIVER: 21.3 cm length COMMON DUCT: 3 mm RIGHT KIDNEY: 11.8 x 5.4 x 4.8 cm FINDINGS: LIVER: Echotexture is within normal limits. No mass lesion is seen. Overall, the liver appears enlarged dell uring 21.2 cm in transverse dimension. No intrahepatic biliary duct dilation is evident. COMMON DUCT: No intraluminal mass or stone visualized. GALLBLADDER: Contains no stones, demonstrates no wall thickening or pericholecystic fluid. PANCREAS: The visualized portions are within normal limits. RIGHT KIDNEY: No evidence of hydronephrosis, stone, or mass. CONCLUSION: 1. Hepatomegaly. Terrell Glynn MD on January 24, 2017 at 15:47 Board Certified Radiologist. This report was verified electronically.
[2017-01-24] MEDS: METOCLOPRAMIDE HCL 10 MG/2 ML VIAL IV PUSH PRN ×2 (18:14→23:38)
[2017-01-24] MEDS ORDERED: ALUMINUM/MAGNESIUM/SIMETH 30 ML CUP PO ONE (22:00)
[2017-01-24] MEDS ORDERED: PANTOPRAZOLE SODIUM 40 MG VIAL IV PUSH ONE (22:00)
[2017-01-25 02:46] VITALS: PULSE 57
[2017-01-25] MEDS: HYDROmorphone HCL PF 1 MG/ML VIAL IV PUSH PRN ×3 (03:43→12:48)
[2017-01-25 04:21] VITALS: BP 134/74; PULSE 66; RESP 18; TEMP 98; O2SAT 99
[2017-01-25 06:06] LABS: AUTOMATED NEUTROPHIL # 4.4 TH/MM3 (1.8-7.7); BASOPHIL % 0.6 % (0.0-2.0); EOSINOPHIL # 0.1 TH/MM3 (0-0.4); EOSINOPHIL % 1.8 % (0.0-4.0); HEMATOCRIT 38.3 % (39.0-51.0); HEMO FLAGS DIFF FINAL; LYMPH % 24.3 % (9.0-44.0); LYMPHOCYTE # 1.7 TH/MM3 (1.0-4.8); MEAN CELL VOLUME 85.5 FL (80.0-100.0); MEAN CORPUSCULAR HEMOGLOBIN 29.5 PG (27.0-34.0); MEAN CORPUSCULAR HGB CONC 34.6 % (32.0-36.0); MONO % 8.8 % (0.0-8.0); NEUT % 64.5 % (16.0-70.0); PLATELET COUNT 125 TH/MM3 (150-450); RED BLOOD COUNT 4.49 MIL/MM3 (4.50-5.90); RED CELL DISTRIBUTION WIDTH 13.3 % (11.6-17.2); WHITE BLOOD COUNT 6.9 TH/MM3 (4.0-11.0)
[2017-01-25 06:34] LABS: ALKALINE PHOSPHATASE 75 U/L (45-117); ALT (GPT) 31 U/L (12-78); ANION GAP 9 MEQ/L (5-15); AST (GOT) 16 U/L (15-37); BICARBONATE 27.2 MEQ/L (21.0-32.0); BLOOD UREA NITROGEN 17 MG/DL (7-18); CHLORIDE 101 MEQ/L (98-107); GLOMERULAR FILTRATION RATE 149 ML/MIN (>89); POTASSIUM 3.8 MEQ/L (3.5-5.1); SODIUM (NA) 137 MEQ/L (136-145); TOTAL BILIRUBIN ADULT 2.6 MG/DL (0.2-1.0)
[2017-01-25 08:00] VITALS: PULSE 55
--- NOTE | 2017-01-25 08:14 | HHI.PR ---
Subjective Remarks Follow up for intractable nausea/vomiting/abdominal pain. The patient is asleep upon my arrival. Upon awakening, I ask him how he is feeling and he states "Oh I 'll be feeling a lot better in 10 minutes when I get my nausea and pain medication." He reports continued epigastric pain, described as feeling "sore". He has continued nausea but has not vomited since 2pm yesterday afternoon. He did not attempt to eat dinner last night because he states he was getting nausea after sips of water. He states he has severe acid reflux, much worse after burping. He has not had a bowel movement since Friday 01/19 but states he also hasn't been eating anything all week. He admits to smoking marijuana last Friday, 2 days before his symptoms started. Of note, per RN, apparently the patient told one of the nurses that he was on a drug binge all last week and now hasn't been able to eat since. His drug screen is positive for opiate, benzos, cannabinoids. Objective Vitals Vital Signs Date Time Temp Pulse Resp B/P Pulse Ox O2 Delivery O2 Flow Rate FiO2 01/25/17 04:21 98.0 66 18 134/74 99 01/25/17 02:46 57 01/24/17 20:14 98.0 77 18 143/78 99 01/24/17 12:32 61 01/24/17 12:22 98.0 57 18 125/74 97 I/O 01/24/17 01/24/17 01/24/17 01/25/17 01/25/17 01/25/17 07:00 15:00 23:00 07:00 15:00 23:00 Intake Total 240 ml Balance 240 ml Intake Oral 240 ml Result Diagram: 01/25/17 0536 01/25/17 0536 Imaging Last Impressions Gall Bladder Ultrasound 01/24/17 0000 Signed Impressions: Service Date/Time: Tuesday, January 24, 2017 15:25 - CONCLUSION: 1. Hepatomegaly. Terrell Glynn MD Abdomen/Pelvis CT 01/24/17 0000 Signed Impressions: Service Date/Time: Tuesday, January 24, 2017 00:58 - CONCLUSION: 1. No acute findings. Liver enlarged to approximately 21 cm in length. There is no significant change from August 2016. Douglas Appiah MD Objective Remarks GENERAL: Well-nourished, well-developed young male patient in NAD. Asleep upon my arrival. SKIN: Warm and dry. No rash. HEENT: Normocephalic. Atraumatic. Pupils equal and round. Mucous membranes pink and moist. NECK: Supple. Trachea midline. CARDIOVASCULAR: Regular rate and rhythm. S1, S2 noted. No murmur appreciated. RESPIRATORY: No accessory muscle use. Clear to auscultation. Breath sounds equal bilaterally. GASTROINTESTINAL: Abdomen soft, nondistended, NONTENDER with light and deep palpation when pressing with stethoscope with distraction. Normoactive bowel sounds x4. MUSCULOSKELETAL: No obvious deformities. Extremities without clubbing, cyanosis , or edema. NEUROLOGICAL: Awake and alert. No obvious cranial nerve deficits. Motor grossly within normal limits. Normal speech. PSYCHIATRIC: Appropriate mood and affect; insight and judgment normal. Medications and IVs Current Medications Medications (Trade) Dose Ordered Sig/Mike Route Start Time Stop Time Status Last Admin (NS 1000 ml Inj) 1,000 ml @ 100 mls/hr Q10H IV 01/24/17 02:32 01/24/17 23:38 (NS Flush) 2 ml UNSCH PRN IV FLUSH 01/24/17 02:45 (NS Flush) 2 ml BID IV FLUSH 01/24/17 09:00 01/24/17 08:49 (Narcan Inj) 0.4 mg UNSCH PRN IV 01/24/17 02:45 (Zofran Inj) 4 mg Q6HR PRN IV PUSH 01/24/17 08:45 01/24/17 08:49 (Dilaudid Pf Inj) 0.2 mg Q4H PRN IV PUSH 01/24/17 10:30 01/25/17 03:43 (Reglan Inj) 5 mg Q8H PRN IV PUSH 01/24/17 17:30 01/24/17 23:38 (Protonix) 40 mg HS PO 01/25/17 21:00 (Habitrol 21 Mg Patch.24 Hr) 1 patch DAILY T-DERMAL 01/25/17 09:00 Miscellaneous Information 1 DAILY T-DERMAL 01/25/17 09:00 A/P Problem List: (1) Hyperemesis ICD Code: R11.10 Status: Acute (2) OFELIA (acute kidney injury) ICD Code: N17.9 Status: Resolved (3) Tobacco abuse ICD Code: Z72.0 Status: Acute (4) Marijuana abuse ICD Code: F12.10 Status: Acute Assessment and Plan 26 y/o male with a history of htn (on no medication), gerd, depression and anxiety. Patient was seen and in extreme pain, 10/10, cramping throughout abdomen. Patient denies regular marijuana use or NSAID use. Intractable Nausea/Vomiting/Abdominal Pain: possible marijuana hyperemesis, patient vomiting multiple times a day since friday 01/19, with associated abdominal pain. UDS positive for benzos/opiates/cannabinoids. Abdominal CT images reviewed, shows enlarged liver, no change in prior scan, no acute findings. Continue Protonix. Continue supportive treatment with IVF, antiemetics with IV Zofran prn, pain control with IV Dilaudid 0.2mg q4h prn. Maalox prn dyspepsia. Consulted GI. GB US unremarkable. Advance diet to regular. Acute kidney injury: creatine 2.77, baseline 0.8, likely dehydration from vomiting as above. Given IVF. Renal function improved. Cr 0.64. Resolved. Leucocytosis, acute: likely reactive from vomiting, WBC 13.1K, no fevers. Monitor CBC, leukocytosis resolved. Elevated total bilirubin, 2.2, benign: Biliary components ordered obstruction vs [place] disease, Indirect bilirubin 1.7, direct 0.3. GI following as above. Polysubstance/Tobacco Abuse: chronic. UDS +benzos/opiates/cannabinoids. Counseled on cessation. Nicotine patch. DVT prophylaxis: SCDs Discharge Planning Possible discharge today if patient tolerates oral intake. 1630hrs: RN reports the patient refuses to try anything to eat however is tolerating liquids. He states he just doesn't feel like eating anything, however staff reported all food gone from tray, patient claimed his visitors ate the food for him. He also continues to request antiemetic medication then falls asleep in his room. No further episodes of vomiting in over 24hours. Patient is stable for discharge home. Strongly encouraged to continue po intake , continue with liquids for now and advance as tolerated. Discharge patient to home Condition on discharge: Improved Regular Diet as tolerated [place] activity Rx written: Zofran prn, Maalox, Protonix Follow-up with primary care physician and gastroenterology Norberto,Jessika F PA-C January 25, 2017 08:14
[2017-01-25] MEDS: METOCLOPRAMIDE HCL 10 MG/2 ML VIAL IV PUSH PRN ×2 (08:18→16:37)
[2017-01-25] MEDS: SODIUM CHLORIDE 0.9% FLUSH 10 ML FLUSH IV FLUSH SCH (08:18)
[2017-01-25 08:21] VITALS: BP 137/77; PULSE 54; RESP 18; TEMP 96.8; O2SAT 96
[2017-01-25] MEDS: SODIUM CHLOR 0.9% 1000 ML INJ 1,000 ML IV SCH (08:32)
[2017-01-25] MEDS ORDERED: NICOTINE 21 MG/24 HR PATCH T-DERMAL SCH (09:00)
[2017-01-25] MEDS ORDERED: REMOVE OLD PATCH T-DERMAL SCH (09:00)
[2017-01-25] MEDS ORDERED: ALUMINUM/MAGNESIUM/SIMETH 30 ML CUP PO ONE ×2 (09:00→14:00)
[2017-01-25] MEDS: SODIUM CHLORIDE 0.9% FLUSH 10 ML FLUSH IV FLUSH PRN ×2 (12:48→16:37)
[2017-01-25 13:37] VITALS: BP 148/90; PULSE 54; RESP 18; TEMP 97.6; O2SAT 95
[2017-01-25] MEDS ORDERED: PANTOPRAZOLE SOD 40 MG DELAYED RELEASE TAB PO ONE (14:00)
[2017-01-25] MEDS ORDERED: PANT40TA3 PO (14:10)
[2017-01-25] MEDS ORDERED: ZOFR4TAB3 SL (14:10)
[2017-01-25] MEDS ORDERED: MAALSUS18 PO (14:10)
--- NOTE | 2017-01-25 14:11 | HHI.DCPOC ---
Discharge Care Plan Diagnosis: (1) Nausea & vomiting (2) Hyperemesis (3) OFELIA (acute kidney injury) (4) Marijuana abuse (5) Tobacco abuse Goals to Promote Your Health * To prevent worsening of your condition and complications * To maintain your health at the optimal level Directions to Meet Your Goals Take your medications as prescribed Follow your dietary instruction Follow activity as directed Keep your appointments as scheduled Take your immunizations and boosters as scheduled If your symptoms worsen call your PCP, if no PCP go to Urgent Care Center or Emergency Room Smoking is Dangerous to Your Health. Avoid second hand smoke Call the 24-hour hour crisis hotline for domestic abuse at Jessika Thornton PA-C January 25, 2017 2:11 pm
[2017-01-25 16:32] VITALS: BP 156/86; PULSE 55; RESP 18; TEMP 97.8; O2SAT 95
[2017-01-25] MEDS ORDERED: PANTOPRAZOLE SOD 40 MG DELAYED RELEASE TAB PO SCH (21:00)
== END 2017-01-25 17:25 | disposition home or self-care (01) ==
LOC: NEPE 22:26 → NEDA 01-24 02:22 → NEPHCDU 01-24 04:02
PROVIDERS: ADMIT Internal Medicine; ATTEND Internal Medicine
DX: N17.9 Acute kidney failure, unspecified (principal); R10.13 Epigastric pain; K92.0 Hematemesis; F12.10 Cannabis abuse, uncomplicated; E86.0 Dehydration; I10 Essential (primary) hypertension; K21.9 Gastro-esophageal reflux disease without esophagitis; D72.829 Elevated white blood cell count, unspecified; F17.200 Nicotine dependence, unspecified, uncomplicated
CPT/HCPCS: 74176; 76705; 80048; 80053; 80307; 81001; 82247; 82248; 83690; 85025; 85610; 85730; 86850; 86900; 86901; 96374; 96375; 99285; C9113; G0378; J1170; J2270; J2405; J2765; J7030

== ENCOUNTER 2017-05-02 04:48 | Emergency (ER) | payer MEDICAID, OTHER ==
[~2017-05-02] VITALS: Ht 175.3 cm; Wt 77.2 kg
[~2017-05-02 04:48] MED LIST changes: -BACT800T5 PO; -CEPH-459 PO; -CLIN1CAP6 PO; +MAALSUS18 PO; +PANT40TA3 PO; +ZOFR4TAB3 SL
[2017-05-02 04:50] VITALS: BP 120/73; PULSE 84; RESP 16; TEMP 99.8; O2SAT 97
[2017-05-02 05:06] VITALS: BP 120/73; PULSE 84; RESP 16; TEMP 99.8; O2SAT 97
[2017-05-02] MEDS ORDERED: SODIUM CHLOR 0.9% 1000 ML INJ 1,000 ML IV ONE (05:15)
[2017-05-02] MEDS ORDERED: SODIUM CHLORIDE 0.9% FLUSH 10 ML FLUSH IVF PRN (05:15)
[2017-05-02] MEDS ORDERED: KETOROLAC TROMETHAMINE 30 MG/ML (IVP) VIAL IV PUSH ONE (05:15)
--- NOTE | 2017-05-02 05:30 | PD ---
HPI Chief Complaint: Headache Time Seen by Provider: 05:11 Travel History International Travel<30 days: No Contact w/Intl Traveler<30days: No Traveled to known affect area: No History of Present Illness HPI 26-year-old male presents to the emergency department by private transportation for complaint of headache sinus pressure fever myalgias arthralgias and not feeling well since late Friday night or early morning. Patient states she's been taking Tylenol for subjective fever and then last evening actually had a temperature elevation of 102.5F. Patient states he awakened this morning 3 AM again with headache and decided to come to the emergency room for evaluation. Patient also complains of frontal headache maxillary sinus pressure denies earache or sore throat. No neck pain or stiffness. Patient has had a cough but states he is not sure if this just his smoker's cough. Patient denies nausea or vomiting abdominal pain diarrhea dysuria frequency urgency joint pain swelling or skin rash. Patient does have muscle aches and joint aches and general. Patient states he only takes Prozac for chronic anxiety depression. Takes no other medications. PFSH Past Medical History Narrative Medical Hypertension ulcer lymph node excision tobacco use alcohol use heroin marijuana use; nursing notes reviewed Blood Disorders: No Anxiety: No Depression: No Cancer: No Cardiovascular Problems: Yes Diabetes: No Diminished Hearing: No Endocrine: No Gastrointestinal Disorders: Yes (ulcers) GERD: Yes Genitourinary: No Hypertension: Yes Immune Disorder: No Implanted Vascular Access Dvce: No Musculoskeletal: No Neurologic: No Psychiatric: No Reproductive: No Respiratory: No Past Surgical History Other Surgery: Yes (RIGHT NECK LYMPH NODE-REMOVAL R/T INFECTION) Social History Alcohol Use: Yes (occassionally) Tobacco Use: Yes (1ppd) Substance Use: Yes (HEROIN, MARIJUANA) Allergies-Medications (Allergen,Severity, Reaction): Coded Allergies: No Known Allergies (Unverified , 05/02/17) Reported Meds & Prescriptions Reported Meds & Active Scripts Active Reported Prozac (Fluoxetine HCl) 10 Mg Cap 10 Mg PO BID Review of Systems Except as stated in HPI: all other systems reviewed are Neg General / Constitutional: Positive: Fever, No: Chills HENT: Positive: Headaches, Rhinorrhea, Congestion, No: Neck Stiffness, Neck Pain Cardiovascular: No: Chest Pain or Discomfort Respiratory: Positive: Cough, No: Shortness of Breath Gastrointestinal: No: Vomiting, Abdominal Pain Genitourinary: No: Decreased Urinary Output, Flank Pain Musculoskeletal: Positive: Myalgias, Arthralgias Skin: No Rash Neurologic: Positive: Headache, No: Weakness, Dizziness Psychiatric: No: Anxiety Hematologic/Lymphatic: No: Lymph Node Enlargement Physical Exam Narrative GENERAL: Well-developed well-nourished male in no acute distress no respiratory distress. Triage vital signs: T: 99.8F remainder of vital signs in normal range SKIN: Warm and dry. HEAD: Normocephalic. EYES: No scleral icterus. No injection or drainage. ENT: Mucous membranes moist airway is patent sinuses tender to percussion over the frontal and maxillary sinuses reproduces pain of presentation. NECK: Supple, trachea midline. No JVD or lymphadenopathy. No meningismus no nuchal rigidity. CARDIOVASCULAR: Regular rate and rhythm without murmurs, gallops, or rubs. RESPIRATORY: Breath sounds equal bilaterally few expiratory wheezes that resolve posttussively. No accessory muscle use. GASTROINTESTINAL: Abdomen soft, non-tender, nondistended. MUSCULOSKELETAL: No cyanosis, or edema. BACK: Nontender without obvious deformity. No CVA tenderness. Data Data Last Documented VS Vital Signs Date Time Temp Pulse Resp B/P (MAP) Pulse Ox O2 Delivery O2 Flow Rate FiO2 05/02/17 06:12 64 16 122/63 (82) 97 Room Air 05/02/17 05:06 99.8 Orders Orders Complete Blood Count With Diff (05/02/17 05:11) Basic Metabolic Panel (Bmp) (05/02/17 05:11) Group A Rapid Strep Screen (05/02/17 05:11) Influenzae A/B Antigen (05/02/17 05:11) Chest, Single Ap (05/02/17 05:11) Iv Access Insert/Monitor (05/02/17 05:11) Oximetry (05/02/17 05:11) Sodium Chloride 0.9% Flush (Ns Flush) (05/02/17 05:15) Sodium Chlor 0.9% 1000 Ml Inj (Ns 1000 M (05/02/17 05:15) Blood Culture (05/02/17 05:11) Ketorolac Inj (Toradol Inj) (05/02/17 05:15) Urinalysis - C+S If Indicated (05/02/17 05:38) Strep Culture (Group A) (05/02/17 05:25) Amoxicil-Clavulanate (Augmentin) (05/02/17 06:45) Labs Laboratory Tests Test 05/02/17 05:25 White Blood Count 6.7 TH/MM3 Red Blood Count 4.72 MIL/MM3 Hemoglobin 13.9 GM/DL Hematocrit 41.1 % Mean Corpuscular Volume 87.1 FL Mean Corpuscular Hemoglobin 29.5 PG Mean Corpuscular Hemoglobin Concent 33.8 % Red Cell Distribution Width 12.3 % Platelet Count 109 TH/MM3 Mean Platelet Volume 11.1 FL Neutrophils (%) (Auto) 73.0 % Lymphocytes (%) (Auto) 15.8 % Monocytes (%) (Auto) 7.5 % Eosinophils (%) (Auto) 3.3 % Basophils (%) (Auto) 0.4 % Neutrophils # (Auto) 4.9 TH/MM3 Lymphocytes # (Auto) 1.1 TH/MM3 Monocytes # (Auto) 0.5 TH/MM3 Eosinophils # (Auto) 0.2 TH/MM3 Basophils # (Auto) 0.0 TH/MM3 CBC Comment DIFF FINAL Differential Comment Urine Collection Type CLEAN CATCH Urine Color STRAW Urine Turbidity CLEAR Urine pH 6.5 Urine Specific [place] 1.003 Urine Protein NEG mg/dL Urine Glucose (UA) NEG mg/dL Urine Ketones NEG mg/dL Urine Occult Blood NEG Urine Nitrite NEG Urine Bilirubin NEG Urine Leukocyte Esterase NEG Urine WBC 0-2 /hpf Microscopic Urinalysis Comment CULT NOT INDICATED Blood Urea Nitrogen 6 MG/DL Creatinine 0.82 MG/DL Random Glucose 101 MG/DL Calcium Level 8.5 MG/DL Sodium Level 133 MEQ/L Potassium Level 3.3 MEQ/L Chloride Level 99 MEQ/L Carbon Dioxide Level 26.2 MEQ/L Anion Gap 8 MEQ/L Estimat Glomerular Filtration Rate 112 ML/MIN [facility] Medical Decision Making Medical Screen Exam Complete: Yes Emergency Medical Condition: Yes Medical Record Reviewed: Yes Interpretation(s) . A strep antigen: Negative Influenza A/B antigen negative Last Impressions Chest X-Ray 05/02/17 0511 Signed Impressions: Service Date/Time: Tuesday, May 02, 2017 05:27 - CONCLUSION: Normal examination. Jarrod Govea MD CBC & BMP Diagram 05/02/17 05:25 Calcium Level 8.5 Vital Signs Date Time Temp Pulse Resp B/P (MAP) Pulse Ox O2 Delivery O2 Flow Rate FiO2 05/02/17 06:12 64 16 122/63 (82) 97 Room Air 05/02/17 05:12 16 97 Room Air 05/02/17 05:06 99.8 84 16 120/73 (89) 97 05/02/17 04:50 99.8 84 16 120/73 (89) 97 Differential Diagnosis Viral syndrome, sinusitis, pharyngitis, influenza, pneumonia, meningitis Narrative Course IV access obtained specimens collected and sent for resulting patient administered 1 L normal saline and Toradol 30 mg IV CBC is automated differential values normal range Chemistry and urinalysis along with rapid strep antigen influenza A and B antigen values were found to be grossly within normal range Patient is clinically improved. Patient clinically has an acute sinusitis. Patient given oral Augmentin and potassium replacement as her potassium was 2.3 Patient stable for outpatient management and follow-up with his primary care provider Diagnosis Primary Impression: Acute sinusitis Referrals: Primary Care Physician call for appointment Patient Instructions: General Instructions Departure Forms: Tests/Procedures, Work Release Special Instructions: no work x 1 day Additional Instructions: Increase fluid hydration Tylenol every 4 hours as needed for fever 100.4F or greater Ibuprofen/Advil/Motrin 600 mg as often as every 6 hours as needed for fever 100.4F or greater Complete course of antibiotic as prescribed Return to the emergency for free concerns or change in condition Follow-up with your primary care provider call office in a.m. to schedule follow -up appointment No work times one day May use [id number] Afrin nasal decongestion spray 1-2 sprays per nostril twice daily for up to 3 days avoid use for 3 days to avoid rebound congestion Med/Other Pt SpecificInfo: Prescription(s) given Scripts Amoxicillin-Clavulanate (Augmentin) 875-125 Mg Tab 1 TAB PO BID for Infection for 10 Days, TAB 0 Refills Prov: Amy Chen MD 05/02/17 Disposition: 01 DISCHARGE HOME Condition: Stable Amy Chen MD May 02, 2017 05:30
--- NOTE | 2017-05-02 06:06 | RADRPT ---
EXAM DATE/TIME: 05/02/2017 05:27 [facility] COMPARISON: CHEST SINGLE AP, September 12, 2016, 11:00. INDICATIONS : Fever for 2 days MEDICAL HISTORY : None. SURGICAL HISTORY : None. ENCOUNTER: Initial ACUITY: 2 days PAIN SCORE: 0/10 LOCATION: Bilateral chest FINDINGS: A single view of the chest demonstrates the lungs to be symmetrically aerated without evidence of mas s, infiltrate or effusion. The cardiomediastinal contours are unremarkable. Osseous structures are intact. CONCLUSION: Normal examination. Jarrod Govea MD on May 02, 2017 at 6:04 Board Certified Radiologist. This report was verified electronically.
[2017-05-02 06:12] VITALS: BP 122/63; PULSE 64; RESP 16; O2SAT 97
[2017-05-02 06:12] LABS: AUTOMATED NEUTROPHIL # 4.9 TH/MM3 (1.8-7.7); BASOPHIL % 0.4 % (0.0-2.0); EOSINOPHIL # 0.2 TH/MM3 (0-0.4); EOSINOPHIL % 3.3 % (0.0-4.0); HEMATOCRIT 41.1 % (39.0-51.0); HEMO FLAGS DIFF FINAL; LYMPH % 15.8 % (9.0-44.0); LYMPHOCYTE # 1.1 TH/MM3 (1.0-4.8); MEAN CELL VOLUME 87.1 FL (80.0-100.0); MEAN CORPUSCULAR HEMOGLOBIN 29.5 PG (27.0-34.0); MEAN CORPUSCULAR HGB CONC 33.8 % (32.0-36.0); MONO % 7.5 % (0.0-8.0); PLATELET COUNT 109 TH/MM3 (150-450); RED BLOOD COUNT 4.72 MIL/MM3 (4.50-5.90); RED CELL DISTRIBUTION WIDTH 12.3 % (11.6-17.2); WHITE BLOOD COUNT 6.7 TH/MM3 (4.0-11.0)
[2017-05-02 06:19] LABS: BLOOD, URINE NEG (NEG); GLUCOSE,URINE NEG (NEG); KETONE, URINE NEG (NEG); NITRITE,URINE NEG (NEG); PH, URINE 6.5 (5.0-8.5)
[2017-05-02 06:21] LABS: POTASSIUM 3.3 MEQ/L (3.5-5.1)
[2017-05-02 06:23] LABS: COMMENT (UR) CULT NOT INDICATED; CULTURE IF INDICATED CULT NOT INDICATED; METHOD OF COLLECTION CLEAN CATCH; URINE COLOR STRAW (YELLW/STRAW); WBC, URINE 0-2 /hpf (0-5)
[2017-05-02 06:24] LABS: BICARBONATE 26.2 MEQ/L (21.0-32.0)
[2017-05-02] MEDS ORDERED: AUGM875T3 PO (06:41)
[2017-05-02] MEDS ORDERED: POTASSIUM CHLORIDE 20 MEQ CONTROLLED RELEASE TAB PO ONE (06:45)
[2017-05-02] MEDS ORDERED: AMOXICILLIN/CLAVULANATE K 875 MG TAB PO ONE (06:45)
[2017-05-02 06:49] VITALS: BP 136/69; PULSE 68; RESP 16; O2SAT 98
== END 2017-05-02 06:58 | disposition home or self-care (01) ==
LOC: PHED 04:48
DX: J01.90 Acute sinusitis, unspecified (principal)
CPT/HCPCS: 71010; 80048; 81001; 85025; 87040; 87081; 87804; 87880; 96374; 99284; J1885; J7030

== ENCOUNTER 2017-10-10 17:35 | Emergency (ER) | payer MEDICAID, OTHER ==
[~2017-10-10] VITALS: Ht 177.8 cm; Wt 82.0 kg
[~2017-10-10 17:35] MED LIST changes: +AUGM875T3 PO; -MAALSUS18 PO; -PANT40TA3 PO; -ZOFR4TAB3 SL
[2017-10-10 17:45] VITALS: BP 132/68; PULSE 83; RESP 16; TEMP 98.5; O2SAT 97
[2017-10-10] MEDS ORDERED: BACT800T5 PO (19:07)
--- NOTE | 2017-10-10 19:11 | PD ---
HPI Chief Complaint: Skin Problem Time Seen by Provider: 19:04 Travel History International Travel<30 days: No Contact w/Intl Traveler<30days: No Traveled to known affect area: No History of Present Illness HPI 27-year-old male that presents to the ED for evaluation of left forearm possible infection. Patient has a history of abscesses in his forearm before. Per patient he developed this morning. 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 Per patient he is concerned he may be developing an abscess which she did last year. Per patient he was told last time he was seen to get evaluated as soon as he starts so sometimes they can give him antibiotics that will make it better without having to do surgery on it. Patient states having minimal discomfort. Per patient is swollen. Erythematous. No injury that he can think of. Pain is 2 out of 10 if any. No fevers chills or sweats. No history of IV drug abuse. PFSH Past Medical History Blood Disorders: No Anxiety: No Depression: No Cancer: No Cardiovascular Problems: Yes Diabetes: No Diminished Hearing: No Endocrine: No Gastrointestinal Disorders: Yes (ulcers) GERD: Yes Genitourinary: No Hypertension: Yes Immune Disorder: No Implanted Vascular Access Dvce: No Musculoskeletal: No Neurologic: No Psychiatric: No Reproductive: No Respiratory: No Past Surgical History Other Surgery: Yes (RIGHT NECK LYMPH NODE-REMOVAL R/T INFECTION) Social History Alcohol Use: Yes (occassionally) Tobacco Use: Yes (1ppd) Substance Use: Yes (HEROIN, MARIJUANA, DENIES AT PRESENT) Allergies-Medications (Allergen,Severity, Reaction): Coded Allergies: No Known Allergies (Unverified Adverse Reaction, Unknown, 10/10/17) Reported Meds & Prescriptions Reported Meds & Active Scripts Active Bactrim DS (Sulfamethoxazole-Trimethoprim) 800-160 Mg Tab 1 Tab PO BID 14 Days Review of Systems Except as stated in HPI: all other systems reviewed are Neg Physical Exam Narrative GENERAL: SKIN: Warm and dry. Patient has a small area of induration which is less than 1 cm in diameter. Mobile and not really painful but definite erythematous. Blanchable. No purulence noted. HEAD: Atraumatic. Normocephalic. EYES: Pupils equal and round. No scleral icterus. No injection or drainage. ENT: No nasal bleeding or discharge. Mucous membranes pink and moist. NECK: Trachea midline. No JVD. CARDIOVASCULAR: Regular rate and rhythm. RESPIRATORY: No accessory muscle use. Clear to auscultation. Breath sounds equal bilaterally. GASTROINTESTINAL: Abdomen soft, non-tender, nondistended. Hepatic and splenic margins not palpable. MUSCULOSKELETAL: Extremities without clubbing, cyanosis, or edema. No obvious deformities. NEUROLOGICAL: Awake and alert. No obvious cranial nerve deficits. Motor grossly within normal limits. Five out of 5 muscle strength in the arms and legs. Normal speech. PSYCHIATRIC: Appropriate mood and affect; insight and judgment normal. Data Data Last Documented VS Vital Signs Date Time Temp Pulse Resp B/P (MAP) Pulse Ox O2 Delivery O2 Flow Rate FiO2 10/10/17 17:45 98.5 83 16 132/68 (89) 97 Orders Orders Ed Discharge Order (10/10/17 19:07) [facility] Medical Decision Making Medical Screen Exam Complete: Yes Emergency Medical Condition: Yes Medical Record Reviewed: Yes Differential Diagnosis Abscesses versus forming abscess versus cellulitis Narrative Course 27-year-old male that presents to the ED for evaluation of left forearm infection. Patient was properly examined and was found to have signs and symptoms which appear to be consistent with developing abscess. Possible cellulitis. At this time and appears to be benign. Do not see any sign of purulence and I do not recommend any incision and drainage at this time. Do agree that antibiotics will be beneficial to hopefully prevent this from becoming a full abscess. Patient understands reasons to come back. Recheck in 40 hours in no improvement at all or worsening symptoms. See ED worsening symptoms. Follow with PCP. Diagnosis Primary Impression: Abscess of left forearm Patient Instructions: General Instructions Additional Instructions: Take medication as prescribed. Follow-up with PCP. See ED worsening symptoms. Motrin or Tylenol for pain. Med/Other Pt SpecificInfo: Prescription(s) given Scripts Sulfamethoxazole-Trimethoprim (Bactrim DS) 800-160 Mg Tab 1 TAB PO BID for Infection for 14 Days, #28 TAB 0 Refills Prov: Luly Fox MD 10/10/17 Disposition: 01 DISCHARGE HOME Condition: Stable Alec Hooper Oct 10, 2017 19:11
[2017-10-10] MEDS ORDERED: SULFAMETHOXAZOLE-TRIMETHOPRIM DS 800-160 MG TAB PO ONE (19:30)
== END 2017-10-10 19:45 | disposition home or self-care (01) ==
LOC: PHED 17:35 → PHEFT 19:45
DX: L02.414 Cutaneous abscess of left upper limb (principal); F17.200 Nicotine dependence, unspecified, uncomplicated
CPT/HCPCS: 99283

== ENCOUNTER 2017-10-30 09:23 | Emergency (ER) | payer MEDICAID, OTHER ==
[~2017-10-30] VITALS: Ht 177.8 cm; Wt 85.0 kg
[~2017-10-30 09:23] MED LIST changes: -AUGM875T3 PO; +BACT800T5 PO; -FLUO-1 PO
[2017-10-30 09:26] VITALS: BP 120/60; PULSE 77; RESP 20; TEMP 97.3; O2SAT 97
--- NOTE | 2017-10-30 09:31 | PD ---
HPI Chief Complaint: N/V Time Seen by Provider: 09:29 Travel History International Travel<30 days: No Contact w/Intl Traveler<30days: No Traveled to known affect area: No History of Present Illness HPI Patient is known to have polysubstance abuse history. Patient came in and was witnessed self inducing emesis by sticking his finger in his back of his throat and gagging. Patient comes in and says that he used to be on a benzodiazepine to try to help against his vomiting. Patient denies any associated factors such as fever, headache, back pain, chest pain, rash. In the past this patient has similar behavior in an attempt to obtain medication such as opiates and benzos to treat his "vomiting". Patient was made aware of that and I will be pursuing a complete workup and if there is any evidence of any conditions that require opiate pain medications or antiemetics that they will be written at that time however at this present time there is no plan for prescriptions. No known drug allergy Past medical and surgical history is significant for hypertension, ulcers, GERD , multiple substance abuse heroin marijuana in the past as well as alcohol use. PFSH Past Medical History Blood Disorders: No Anxiety: No Depression: No Cancer: No Cardiovascular Problems: Yes Diabetes: No Diminished Hearing: No Endocrine: No Gastrointestinal Disorders: Yes (ulcers) GERD: Yes Genitourinary: No Hypertension: Yes Immune Disorder: No Implanted Vascular Access Dvce: No Musculoskeletal: No Neurologic: No Psychiatric: No Reproductive: No Respiratory: No Past Surgical History Other Surgery: Yes (RIGHT NECK LYMPH NODE-REMOVAL R/T INFECTION) Social History Alcohol Use: Yes (occassionally) Tobacco Use: Yes (1ppd) Substance Use: Yes (HEROIN, MARIJUANA, DENIES AT PRESENT) Allergies-Medications (Allergen,Severity, Reaction): Coded Allergies: No Known Allergies (Unverified Adverse Reaction, Unknown, 10/30/17) Reported Meds & Prescriptions Reported Meds & Active Scripts Active No Active Prescriptions or Reported Medications Review of Systems General / Constitutional: No: Fever Eyes: No: Visual changes HENT: No: Headaches Cardiovascular: No: Chest Pain or Discomfort Respiratory: No: Shortness of Breath Gastrointestinal: Positive: Nausea, Vomiting Genitourinary: No: Dysuria Musculoskeletal: No: Pain Skin: No Rash Neurologic: No: Weakness Psychiatric: No: Depression Endocrine: No: Polydipsia Hematologic/Lymphatic: No: Easy Bruising Physical Exam Narrative GENERAL: SKIN: Warm and dry. HEAD: Atraumatic. Normocephalic. EYES: Pupils equal and round. No scleral icterus. No injection or drainage. ENT: No nasal bleeding or discharge. Mucous membranes pink and moist. NECK: Trachea midline. No JVD. CARDIOVASCULAR: Regular rate and rhythm. RESPIRATORY: No accessory muscle use. Clear to auscultation. Breath sounds equal bilaterally. GASTROINTESTINAL: Abdomen soft, non-tender, nondistended. MUSCULOSKELETAL: Extremities without clubbing, cyanosis, or edema. No obvious deformities. NEUROLOGICAL: Awake and alert. No obvious cranial nerve deficits. Motor grossly within normal limits. Five out of 5 muscle strength in the arms and legs. Normal speech. PSYCHIATRIC: Appropriate mood and affect; insight and judgment normal. Data Data Last Documented VS Vital Signs Date Time Temp Pulse Resp B/P (MAP) Pulse Ox O2 Delivery O2 Flow Rate FiO2 10/30/17 09:26 97.3 77 20 120/60 (80) 97 Orders Orders Complete Blood Count With Diff (10/30/17 09:35) Comprehensive Metabolic Panel (10/30/17 09:35) Lipase (10/30/17 09:35) Abdomen, Flat & Upright (10/30/17 ) Iv Access Insert/Monitor (10/30/17 09:35) Ecg Monitoring (10/30/17 09:35) Oximetry (10/30/17 09:35) NPO (10/30/17 09:35) Ondansetron Inj (Zofran Inj) (10/30/17 09:45) Sodium Chlor 0.9% 1000 Ml Inj (Ns 1000 M (10/30/17 09:35) Sodium Chloride 0.9% Flush (Ns Flush) (10/30/17 09:45) Electrocardiogram (10/30/17 09:35) Promethazine Inj (Phenergan Inj) (10/30/17 09:45) Labs Laboratory Tests Test 10/30/17 10:10 White Blood Count 6.5 TH/MM3 Red Blood Count 5.19 MIL/MM3 Hemoglobin 14.6 GM/DL Hematocrit 44.4 % Mean Corpuscular Volume 85.6 FL Mean Corpuscular Hemoglobin 28.2 PG Mean Corpuscular Hemoglobin Concent 32.9 % Red Cell Distribution Width 12.3 % Platelet Count 176 TH/MM3 Mean Platelet Volume 9.6 FL Neutrophils (%) (Auto) 76.5 % Lymphocytes (%) (Auto) 13.9 % Monocytes (%) (Auto) 8.3 % Eosinophils (%) (Auto) 0.3 % Basophils (%) (Auto) 1.0 % Neutrophils # (Auto) 5.0 TH/MM3 Lymphocytes # (Auto) 0.9 TH/MM3 Monocytes # (Auto) 0.5 TH/MM3 Eosinophils # (Auto) 0.0 TH/MM3 Basophils # (Auto) 0.1 TH/MM3 CBC Comment DIFF FINAL Differential Comment Blood Urea Nitrogen 10 MG/DL Creatinine 0.98 MG/DL Random Glucose 139 MG/DL Total Protein 8.1 GM/DL Albumin 3.6 GM/DL Calcium Level 9.0 MG/DL Alkaline Phosphatase 103 U/L Aspartate Amino Transf (AST/SGOT) 34 U/L Alanine Aminotransferase (ALT/SGPT) 40 U/L Total Bilirubin 0.9 MG/DL Sodium Level 141 MEQ/L Potassium Level 3.8 MEQ/L Chloride Level 106 MEQ/L Carbon Dioxide Level 28.0 MEQ/L Anion Gap 7 MEQ/L Estimat Glomerular Filtration Rate 90 ML/MIN Lipase 56 U/L MDM Medical Decision Making Medical Screen Exam Complete: Yes Emergency Medical Condition: Yes Medical Record Reviewed: Yes Interpretation(s) EKG shows normal sinus rhythm, 66 bpm, normal intervals, some slight motion artifact, no LVH, no STEMI pattern noted. Differential Diagnosis Ileus versus SBO versus gastroenteritis versus cyclical vomiting versus marijuana hyperemesis syndrome versus malingering Narrative Course The patient was noted to be drinking water from the faucet and then placed his finger in the back of his throat to induce vomiting while patient was in the room. Abdominal series is negative for any evidence of free air, ileus, or small bowel obstruction. CBC is negative for any leukocytosis anemia or any abnormal platelet count the patient also does not have any neutrophilia Chemistry profile shows normal electrolytes normal kidney functions glucose of 139 normal liver function test and normal lipase. Patient vital signs are stable, patient is no longer actively vomiting nor gagging himself at this present time. Patient will be discharged at this time After thorough evaluation patient does not meet any criteria for opiates nor benzos nor any other controlled substances, the patient has been advised to stop self-induced emesis Diagnosis Primary Impression: Malingering Additional Impression: Self-induced emesis Patient Instructions: Acute Nausea and Vomiting (ED), General Instructions Scripts Ondansetron Odt (Zofran Odt) 4 Mg Tab 4 MG SL Q6HR Y for Nausea/Vomiting, #8 TAB 0 Refills Prov: Brice Rosario MD 10/30/17 Disposition: 01 DISCHARGE HOME Condition: Stable Brice Rosario MD Oct 30, 2017 09:31
[2017-10-30] MEDS ORDERED: SODIUM CHLOR 0.9% 1000 ML INJ 1,000 ML IV SCH (09:35)
[2017-10-30] MEDS ORDERED: PROMETHAZINE INJ 25 MG/ML VIAL IM ONE (09:45)
[2017-10-30] MEDS ORDERED: SODIUM CHLORIDE 0.9% FLUSH 10 ML FLUSH IV FLUSH PRN (09:45)
[2017-10-30] MEDS ORDERED: ONDANSETRON HCL 4 MG/2 ML VIAL IVP ONE (09:45)
[2017-10-30 10:24] LABS: BASOPHIL # 0.1 TH/MM3 (0-0.2); EOSINOPHIL % 0.3 % (0.0-4.0); HEMATOCRIT 44.4 % (39.0-51.0); HEMOGLOBIN 14.6 GM/DL (13.0-17.0); LYMPH % 13.9 % (9.0-44.0); LYMPHOCYTE # 0.9 TH/MM3 (1.0-4.8); MEAN CELL VOLUME 85.6 FL (80.0-100.0); MEAN CORPUSCULAR HEMOGLOBIN 28.2 PG (27.0-34.0); MEAN CORPUSCULAR HGB CONC 32.9 % (32.0-36.0); MEAN PLATELET VOLUME 9.6 FL (7.0-11.0); MONO % 8.3 % (0.0-8.0); MONOCYTE # 0.5 TH/MM3 (0-0.9); NEUT % 76.5 % (16.0-70.0); PLATELET COUNT 176 TH/MM3 (150-450); RED BLOOD COUNT 5.19 MIL/MM3 (4.50-5.90); RED CELL DISTRIBUTION WIDTH 12.3 % (11.6-17.2); WHITE BLOOD COUNT 6.5 TH/MM3 (4.0-11.0)
[2017-10-30 10:32] LABS: CHLORIDE 106 MEQ/L (98-107); SODIUM (NA) 141 MEQ/L (136-145)
--- NOTE | 2017-10-30 10:33 | RADRPT ---
EXAM DATE/TIME: 10/30/2017 09:47 [facility] COMPARISON: No previous studies available for comparison. INDICATIONS : Nausea, vomiting, abdomen pain x 4 days. MEDICAL HISTORY : Hypertension. Ulcers. Gastroesophageal reflux disease. Substance abuse. Smoker. SURGICAL HISTORY : Right lymph node removal. Right leg. ENCOUNTER: Initial ACUITY: 4 - 6 days PAIN SCORE: 9/10 LOCATION: entire abdomen FINDINGS: Supine and upright views of the abdomen were performed. The abdominal bowel gas pattern is normal. No air fluid levels are seen. No abnormal masses, calcifications, or organomegaly is seen. The visu alized lower lungs are clear. No evidence of free intraperitoneal gas. The osseous structures are u nremarkable. CONCLUSION: Benign abdomen. Abraham Randall MD on October 30, 2017 at 10:31 Board Certified Radiologist. This report was verified electronically.
[2017-10-30 10:36] LABS: ALBUMIN 3.6 GM/DL (3.4-5.0); BLOOD UREA NITROGEN 10 MG/DL (7-18); GLUCOSE,RANDOM 139 MG/DL (74-106)
[2017-10-30 10:39] LABS: ALT (GPT) 40 U/L (12-78); AST (GOT) 34 U/L (15-37); CREATININE 0.98 MG/DL (0.60-1.30); GLOMERULAR FILTRATION RATE 90 ML/MIN (>89)
[2017-10-30 10:40] LABS: TOTAL BILIRUBIN ADULT 0.9 MG/DL (0.2-1.0); TOTAL PROTEIN 8.1 GM/DL (6.4-8.2)
[2017-10-30 10:42] LABS: ALKALINE PHOSPHATASE 103 U/L (45-117)
[2017-10-30] MEDS ORDERED: ZOFR4TAB3 SL (10:43)
[2017-10-30 11:11] VITALS: BP 122/65
--- NOTE | 2017-10-30 19:40 | EKG ---
Date Performed: 10/30/2017 Time Performed: 09:43:46 PTAGE: 27 years EKG: Sinus rhythm NORMAL ECG NO PREVIOUS TRACING DOCTOR: Jossie Francisco Interpretating Date/Time 10/30/2017 19:38:56
== END 2017-10-30 11:11 | disposition home or self-care (01) ==
LOC: PHED 09:23
DX: R11.2 Nausea with vomiting, unspecified (principal); K21.9 Gastro-esophageal reflux disease without esophagitis; I10 Essential (primary) hypertension; F17.200 Nicotine dependence, unspecified, uncomplicated; Z76.5 Malingerer [conscious simulation]
CPT/HCPCS: 74019; 80053; 83690; 85025; 93005; 96372; 96374; 99285; J2405; J2550; J7030